=== PATIENT | female | born 1990 | race Caucasian/White ===

== ENCOUNTER 2017-05-06 14:36 | Emergency (ER) | payer BC, SELFPAY ==
[2017-05-06 16:17] VITALS: BP 114/69; PULSE 76; RESP 16; TEMP 36.9; O2SAT 100; BMI 24.7
--- NOTE | 2017-05-06 16:44 | HMH.EDUTC ---
[facility] [place] Clinical Impression: Sinusitis Qualifiers: Sinusitis location: maxillary Chronicity: unspecified Qualified Code(s): J32.0 - Chronic maxillary sinusitis Disposition: Home, Self-Care Condition on Discharge: Good Instructions: Sinusitis, Sinus Headache, DI for Sinusitis Additional Instructions: Start antibiotic. Sinus infections may take 2-3 days to notice much improvement so be sure to use conservative measures as discussed for symptoms Ok to continue Sudafed Flonase 2 spray in each nostril daily to help with nasal congestion, sinus an ear pressure/inflammation Lots of Fluids Sleep elevated Humidifer/vaporizer Augmentin can cause GI effects. Probiotics may help to prevent these symptoms Prescriptions: Amoxicillin/Potassium Clav [Augmentin 875-125 Tablet] 1 tab PO Q12H #14 tab Referrals: Shona Luna [Primary Care Provider] - Time of Disposition: 16:52 (Called with pharmacy and discussed medication due to patient being States that Augmentin is pregnacy B state that it would be safe to use for treatement for sinusitis per Sameer at Pharmacy) Medical Decision Making Vital Signs: 05/06/17 16:17 Temperature 98.5 F Temperature Source Temporal Artery Scan Pulse Rate [Right] 76 Respiratory Rate 16 Blood Pressure [Right Arm] 114/69 Blood Pressure Mean [Right Arm] 84 Blood Pressure Source [Right Arm] Automatic Cuff Blood Pressure Position [Right Arm] Sitting 02 Sat by Pulse Oximetry 100 Oxygen Delivery Method Room Air - Liu Inquiry Pt receiving controlled substance: No Liu was queried for this patient: No [facility] [place] HPI - General Stated complaint: sinus pressure Mode of Arrival: Ambulatory Source of Information: Patient Limitations: No Limitations Description of Symptoms (Recalled from Triage Doc. by RN): CONGESTION, ERAS HURT, HEADACHE X3 DAYS, 6 WKS IUP HEENT Symptoms (Recalled from RN notes): Yes Resp Symptoms (Recalled from RN notes): No Skin Symptoms (Recalled from RN notes): No MS Symptoms (Recalled from RN notes): No Functional Status (Recalled from RN notes): N - History of Present Illness Provider Complaint: Patient state that she is and states that she has a history of sinusitis State that she is having sinus pain and pressure and not feeling well States that she feels like even her teeth is huring - Related Data Previous Rx's Medication Instructions Recorded Amoxicillin/Potassium Clav 1 tab PO Q12H #14 tab 05/06/17 [Augmentin 875-125 Tablet] Allergies Allergy/AdvReac Type Severity Reaction Status Date / Time No Known Allergies Allergy Verified 05/06/17 16:23 - Worker's Comp Is this a Worker's Comp case?: No [facility] History - *Social History Smoking Status: Current every day smoker Tobacco Type: cigarettes Alcohol Intake: never - Psychiatric History Expresses thoughts of harming self/others: None Suicide Plan Description: No Plan - ENT Reports sinus pain, Reports sinus pressure Physical Exam - General General appearance: alert, in no apparent distress - Expanded ENT Exam Nose exam: Present: sinus tenderness Nasal speculum exam: Bilateral: purulent discharge - Respiratory Respiratory exam: Present: normal lung sounds bilaterally. Absent: respiratory distress - Cardiovascular Cardiovascular exam: Present: regular rate, normal rhythm. Absent: JVD - Neurological Exam Neurological exam: Present: alert, oriented X3
== END 2017-05-06 17:00 | disposition home or self-care (01) ==
PROVIDERS: Emergency Provider Nurse Practitioner; PCP Family Medicine
DX: J32.0 Chronic maxillary sinusitis (principal); Z34.90 Encounter for supervision of normal pregnancy, unspecified, unspecified trimester
CPT/HCPCS: 99201

== ENCOUNTER 2021-11-26 09:50 | Emergency (ER) | payer BC, SELFPAY ==
--- NOTE | 2021-11-26 10:10 | HMH.EDUTC ---
[facility] – [place] Disposition Clinical Impression: Abdominal pain Qualifiers: Abdominal location: unspecified location Qualified Code(s): R10.9 - Unspecified abdominal pain Disposition: Still a Patient Condition on Discharge: Fair Referrals: Edu Almazan [Primary Care Provider] - Time of Disposition: 10:41 Medical Decision Making - Medical Records Medical records reviewed: No: I reviewed the patient's medical records. - Liu Inquiry Pt receiving controlled substance: No Vital Signs: 11/26/21 10:12 Temperature 98.8 F Temperature Source Oral Pulse Rate [Left] 89 Respiratory Rate 17 Blood Pressure [Right Arm] 127/74 Blood Pressure Mean [Right Arm] 91 02 Sat by Pulse Oximetry 96 - Lab Data Lab Results 11/26/21 10:06: Strep Scn Rapid Clinic Negative Orders (Tests/Meds): ORDERS Category Date Time Status Covid-19 Nasal PCR ([facility] [place]) Routine Lab 11/26/21 10:04 Received Strep Screen Confirmation Stat Micro 11/26/21 10:06 Received [facility] [place] HPI - General Stated complaint: stomach pains, vomiting, diarrhea Time Seen by Provider: 11/26/21 10:10 - History of Present Illness Provider Complaint: She c/o ruq and epigastric abdominal pain for the past 2 days. She has been vomiting yellowish bile. She has had a diarrhea also. - Related Data Home Medications Medication Instructions Recorded Confirmed Pantoprazole Sodium [Protonix 40mg 60 mg PO DAILY 03/13/19 03/13/19 tablet] Previous Rx's Medication Instructions Recorded Azithromycin [Zithromax 250mg 250 mg PO DIRECTED #6 tab 03/13/19 tab] Allergies Allergy/AdvReac Type Severity Reaction Status Date / Time hydromorphone [From Dilaudid] Allergy Verified 11/26/21 10:16 [facility] [place] History - Hepatitis A Screen Attestation statement:: This patient has been screened for Hepatitis A risk factors. I have reviewed the patient's past medical history: Yes Medical History: Denies:: Cancer, Diabetes Mellitus Type 1, Diabetes Mellitus Type 2, MRSA Laterality Cases: Left: Arthroscopy Shoulder Amputation: No - Social History Smoking Status: Current every day smoker Tobacco Type: cigarettes # Packs/Day (cigarettes): 1 Alcohol Intake: never Occupational Status: other ROS Obtained: Yes All systems reviewed & no additional complaints - Constitutional Constitutional: Reports as per HPI - Eyes Eyes: Denies eye discharge - ENT Ears, Nose, Mouth, and Throat: Denies sore throat - Cardiovascular Cardiovascular: Denies chest pain - Respiratory Respiratory: Denies chest congestion, Denies cough - Gastrointestinal Gastrointestingal: Reports: abdominal pain, cramping, diarrhea, nausea, vomiting - Genitourinary Female Genitourinary: Denies dysuria, Denies urinary frequency, Denies urinary incontinence, Denies urinary hesitancy, Denies urinary urgency - Musculoskeletal Musculoskeletal: Denies joint pain - Integumentary/Breasts Skin/Breast: Denies rash Physical Exam - General General appearance: alert, in no apparent distress - Head Head exam: atraumatic, normocephalic, normal inspection - Eye Eye exam: Present: normal appearance, PERRL, EOMI - ENT ENT exam: Present: normal exam, normal oropharynx, mucous membranes moist, TM's normal bilaterally, normal external ear exam - Neck Neck exam: Present: normal inspection, full ROM, trachea midline. Absent: meningismus, lymphadenopathy - Chest Chest inspection: Present: normal inspection, symmetric chest wall rise. Absent: tenderness - Respiratory Respiratory exam: Present: normal lung sounds bilaterally. Absent: respiratory distress - Cardiovascular Cardiovascular exam: Present: regular rate, normal rhythm. Absent: JVD - Abdominal Exam Abdominal exam: Present: soft, tenderness, guarding, rigidity, hyperactive bowel sounds. Absent: distention, rebound Abdominal tenderness: Present: RUQ, epigastrium, moderate - Extremities Exam Extremities
[2021-11-26 10:12] VITALS: BP 127/74; PULSE 89; RESP 17; TEMP 37.1; O2SAT 96; BMI 23.3
[2021-11-26 10:23] LABS: UTC Strep Screen (Rapid) Negative (Negative)
[2021-11-26 10:41] VITALS: BP 119/77; PULSE 77; RESP 18; TEMP 37.2; O2SAT 99; BMI 23.3
--- NOTE | 2021-11-26 10:41 | PC.NURSE ---
ED MD AT BEDSIDE TO EVALUATE PT
--- NOTE | 2021-11-26 10:42 | PC.NURSE ---
1040 PT AMBULATORY FROM [facility] AT THIS TIME FOR FURTHER EVALUATION
--- NOTE | 2021-11-26 10:46 | HMH.EDABDPAI ---
ED Disposition Clinical Impression: Abdominal pain Qualifiers: Abdominal location: epigastric Qualified Code(s): R10.13 - Epigastric pain Nausea & vomiting Qualifiers: Vomiting type: unspecified Qualified Code(s): R11.2 - Nausea with vomiting, unspecified Diarrhea Qualifiers: Diarrhea type: unspecified type Qualified Code(s): R19.7 - Diarrhea, unspecified Disposition: Home, Self-Care Condition on Discharge: Good Instructions: DI for Nausea -- Adult, Diarrhea, DI for Abdominal Pain-Adult Additional Instructions: follow up with GI and PCP, return here for worse Prescriptions: Ondansetron [Zofran 4mg ODT] 4 mg PO DAILYP PRN #12 tab PRN Reason: Nausea And Vomiting Transmission Status: Pending to [id number] Referrals: Edu Almazan [Primary Care Provider] - - Critical Care Critical Care Time: No Attestation: On 11/26/21, the high probability of a clinically significant, sudden or life threatening deterioration of the following system(s) required my full and direct attention, intervention and personal management. The time I documented below is in addition to time spent performing reported procedures but includes the following listed in this critical care notation. Medical Decision Making - Medical Records Medical records reviewed: Yes: I reviewed the patient's medical records. - Liu Inquiry Pt receiving controlled substance: No Vital Signs: 11/26/21 10:12 11/26/21 11:00 Temperature 98.8 F Temperature Source Oral Pulse Rate 78 Pulse Rate [Left] 89 Respiratory Rate 17 Blood Pressure 111/69 Blood Pressure [Right Arm] 127/74 Blood Pressure Mean 89 Blood Pressure Mean [Right Arm] 91 02 Sat by Pulse Oximetry 96 99 - Lab Data Lab Results 11/26/21 10:06: Strep Scn Rapid Clinic Negative 11/26/21 11:05: WBC 7.2, RBC 4.80, Hgb 15.5, Hct 45.4, MCV 94.5, MCH 32.2 H, MCHC 34.1, RDW 12.2, Plt Count 258, MPV 7.5, Neut % (Auto) 59.4, Lymph % (Auto) 29.0, Chambers % (Auto) 6.9, Eos % (Auto) 3.9, Baso % (Auto) 0.8, Neut # (Auto) 4.3, Lymph # (Auto) 2.1, Chambers # (Auto) 0.5, Eos # (Auto) 0.3, Baso # (Auto) 0.1 11/26/21 11:05: Sodium 142, Potassium 4.1, Chloride 107, Carbon Dioxide 27, Anion Gap 12.1, BUN 4 L, Creatinine 0.50 L, Estimated Creat Clear 165, Estimated GFR 145, Est GFR ( Amer) 175, Glucose 103 H, Calcium 10.0, Total Bilirubin 0.4, AST 45 H, ALT 44, Alkaline Phosphatase 105, Total Protein 7.4, Albumin 4.8, Globulin 2.6, Albumin/Globulin Ratio 1.8, Lipase 113 11/26/21 11:05: Serum HCG, Qual Negative Result diagrams: 11/26/21 11:05 11/26/21 11:05 Orders (Tests/Meds): ED MEDICATIONS Generic Name Dose Route Start Last Admin Trade Name Freq PRN Reason Stop Dose Admin Sodium Chloride 8 ml 11/26/21 10:45 Sodium Chloride 0.9% 10ml Vial IV 12/26/21 10:44 NEEDED PRN dilute pepcid Sodium Chloride 10 ml 11/26/21 11:07 Sodium Chloride 0.9% 10ml Flush Syringe IV 12/26/21 11:06 NEEDED PRN Maintain IV Site Discontinued Medications Generic Name Dose Route Start Last Admin Trade Name Freq PRN Reason Stop Dose Admin Belladonna Alkaloids 60 ml 11/26/21 10:44 11/26/21 11:11 Gi Cocktail 60ml Udc PO 11/26/21 10:45 60 ml ONCE ONE Administration Famotidine 20 mg 11/26/21 10:45 11/26/21 11:12 Famotidine 20mg/2ml Vial IV 11/26/21 10:46 20 mg ONCE ONE Administration Metoclopramide HCl 10 mg 11/26/21 10:44 11/26/21 11:11 Metoclopramide Hcl 10mg/2ml Vial IVP 11/26/21 10:45 10 mg ONCE ONE Administration Ondansetron HCl 8 mg 11/26/21 10:44 11/26/21 11:11 Ondansetron 4mg/2ml Vial IV 11/26/21 10:45 8 mg ONCE ONE Administration ORDERS Category Date Time Status Covid-19 Nasal PCR ([facility]) Routine Lab 11/26/21 10:04 Received Strep Screen Confirmation Stat Micro 11/26/21 10:06 Received - Reevaluation(s) Time: 11:37 (reeval, vss, appears well, abd soft, ok with plan to rx for n/v/d and
[2021-11-26 11:00] VITALS: BP 111/69; PULSE 78; O2SAT 99
--- NOTE | 2021-11-26 11:08 | PC.NURSE ---
1105 UPDATED PT ON POC, QUESTIONS ENCOURAGED AND ANSWERED. PT V/U AND AGREES TO POC
[2021-11-26 11:19] LABS: Basophils # 0.1 K/mm3 (0-0.2); Basophils % 0.8 % (0.1-2.0); Eosinophils # 0.3 K/mm3 (0.0-0.4); Eosinophils % 3.9 % (0.1-12.0); Hematocrit 45.4 % (37.0-47.0); Hemoglobin 15.5 g/dL (12.2-16.2); Lymphocytes # 2.1 K/mm3 (0.7-4.5); Mean Corpuscular HGB Conc 34.1 g/dL (31.8-35.4); Mean Corpuscular Hemoglobin 32.2 pg (27.0-31.2); Mean Corpuscular Volume 94.5 fl (81-99); Mean Platelet Volume 7.5 fl (7.4-10.4); Monocytes # 0.5 K/mm3 (0.1-1.0); Monocytes % 6.9 % (1.7-9.3); Neutrophils # 4.3 K/mm3 (1.8-7.8); Neutrophils % 59.4 % (37.0-80.0); Platelet Count 258 K/mm3 (142-424); Red Cell Distribution Width 12.2 % (11.5-17.5); White Blood Count 7.2 K/mm3 (4.8-10.8)
[2021-11-26 11:20] LABS: Chloride 107 mmol/L (98-107); Sodium 142 mmol/L (136-145)
--- NOTE | 2021-11-26 11:21 | PC.NURSE ---
MEDICATED AT THIS TIME PER EMAR. NO NEEDS VOICED
[2021-11-26 11:22] LABS: Potassium 4.1 mmoL/L (3.5-5.1)
[2021-11-26 11:23] LABS: Alanine Aminotransferase 44 U/L (12-78); Alkaline Phosphatase 105 U/L (38-126); Anion Gap 12.1 mEq/L (5-15); Aspartate Amino Transferase 45 U/L (14-36); Bilirubin,Total 0.4 mg/dl (0.2-1.3); Blood Urea Nitrogen 4 mg/dl (7-17); Carbon Dioxide 27 mmol/L (22.0-30.0); Creatinine Clearance Estimated 165 mL/min (50-200); Estimated Glomerular Filt Rate 145 ml/min (>60); GFR (African American) 175 ML/MIN (>60); Lipase 113 U/L (23-300)
[2021-11-26 11:24] LABS: Glucose 103 mg/dl (74-100)
[2021-11-26 11:25] LABS: Albumin Level 4.8 g/dl (3.5-5.0); Albumin/Globulin Ratio 1.8 (1.1-1.8); Globulin 2.6 g/dL (1.3-3.2); Total Protein,Serum 7.4 g/dl (6.3-8.2)
[2021-11-26 11:33] LABS: HCG Qualitative, Serum Negative (Negative)
--- NOTE | 2021-11-26 11:34 | PC.NURSE ---
ED MD AT BEDSIDE FOR REEVALUATION
--- NOTE | 2021-11-26 11:40 | PC.NURSE ---
rounded on patient, patient stated that she had talked to the doctor and she was getting ready to be released, stated she had no needs at this time
[2021-11-26 11:50] VITALS: BP 117/60; PULSE 78; RESP 18; TEMP 37.1; O2SAT 99
== END 2021-11-26 11:54 | disposition home or self-care (01) ==
LOC: UTC 10:41 → ER 10:43
PROVIDERS: Emergency Medicine; Emergency Provider Nurse Practitioner Family; PCP Internal Medicine
DX: R10.13 Epigastric pain (principal); R11.2 Nausea with vomiting, unspecified; R19.7 Diarrhea, unspecified; R51.9 Headache, unspecified; K21.9 Gastro-esophageal reflux disease without esophagitis; F17.210 Nicotine dependence, cigarettes, uncomplicated; Z20.822 Contact with and (suspected) exposure to COVID-19; Z88.5 Allergy status to narcotic agent; Z88.6 Allergy status to analgesic agent
CPT/HCPCS: 80053; 83690; 84703; 85025; 87880; 96374; 96375; 99285; C9803; J2405; U0003; U0005

== ENCOUNTER → 2021-11-28 16:11 | Outpatient (CLI) | payer BC, SELFPAY ==
--- NOTE | 2021-11-28 16:21 | CT_ITS ---
PROCEDURE INFORMATION: Exam: CT Abdomen And Pelvis With Contrast Exam date and time: 11/28/2021 5:56 PM Age: 31 years old Clinical indication: Abdominal pain; Localized; Right lower quadrant (rlq); Additional info: Abdominal pain; Right lower quadrant TECHNIQUE: Imaging protocol: Computed tomography of the abdomen and pelvis with contrast. Radiation optimization: All CT scans at this facility use at least one of these dose optimization techniques: automated exposure control; mA and/or kV adjustment per patient size (includes targeted exams where dose is matched to clinical indication); or iterative reconstruction. Contrast material: ISOVUE; Contrast volume: 75 ml; Contrast route: IV; Other contrast: Oral; COMPARISON: No relevant prior studies available. FINDINGS: Lungs: Mild atelectasis in the lung bases. Heart: Heart size normal. Mediastinal space: The visualized distal esophagus is largely contracted without gross abnormality. Liver: Normal contour. No mass lesions. No intrahepatic biliary ductal dilatation. Gallbladder and bile ducts: Question faint isoechoic layering material in the gallbladder lumen suggesting possible sludge or noncalcified stones. No gallbladder wall thickening or adjacent stranding to suggest cholecystitis. Nondilated bile ducts. Pancreas: Normal. No inflammatory changes or ductal dilation. Spleen: Normal. No splenomegaly. Adrenal glands: Normal. No adrenal mass. Kidneys and ureters: No acute abnormalities. No hydronephrosis or hydroureter. No urinary tract stones are identified. There is a low-density circumscribed right renal cortical lesion suggesting renal cyst for which no further imaging evaluation is required. Stomach and bowel: The stomach is unremarkable. The small bowel is nondilated with no gross abnormality. No acute colonic abnormalities. The distal colon is largely contracted. Appendix: The appendix is normal in caliber and demonstrates no evidence of appendicitis. Intraperitoneal space: No free fluid or air. Vasculature: No acute process. No abdominal aortic aneurysm. Lymph nodes: No adenopathy. Urinary bladder: Unremarkable as visualized. Reproductive: The uterus and left ovary are unremarkable. There are 2 fairly simple appearing cysts/follicles in the right ovary measuring 2.4 cm and 2.1 cm. The more inferior has questionable slight wall thickening and contour irregularity which may represent ruptured follicle. This is within physiologic range but could produce symptoms. Bones/joints: No acute osseous abnormalities. Soft tissues: Very small fatty umbilical hernia . No evidence of associated bowel herniation or strangulation. IMPRESSION: 1. There are 2 simple appearing cysts/follicles in the right ovary measuring 2.4 and 2.1 cm. One of these has slightly irregular contour and slight wall thickening possibly indicating ruptured/involuting follicle. This is within physiologic range but may produce symptoms. No gross CT features of torsion. 2. Normal appendix. No urolithiasis or hydronephrosis. No evidence of bowel obstruction, perforation, or abscess. 3. Additional nonemergent findings detailed above. COMMENTS: Consistent with the [employer]'s Incidental Findings Committee white paper (J Am Janeen Radiol 2018): Any incidental renal lesion less than 1 cm or classified as too small to characterize, or any incidental cystic renal lesion characterized as simple-appearing, is likely benign. No follow-up imaging is recommended for these lesions per consensus recommendations based on imaging criteria.
== END ==
PROVIDERS: PCP Physician Assistant; Visit Provider Physician Assistant
DX: R10.31 Right lower quadrant pain (principal)
CPT/HCPCS: 74177; Q9967

== ENCOUNTER → 2021-11-29 09:31 | Outpatient (CLI) | payer BC, SELFPAY ==
[2021-11-29 09:43] LABS: Adenovirus F 40/41, stool Not Detected (NotDetected); Astrovirus Not Detected (NotDetected); Campylobacter Not Detected (NotDetected); Clostridium Difficile A/B, PCR Not Detected (NotDetected); Cyclospora Cayetanesis Not Detected (NotDetected); Entamoeba histolytica Not Detected (NotDetected); Enteroaggregative E coli Not Detected (NotDetected); Enterotoxigenic E coli Not Detected (NotDetected); Giardia lamblia Not Detected (NotDetected); Norovirus Not Detected (NotDetected); Plesimonas Shigalloides, PCR Not Detected (NotDetected); Rotavirus A Not Detected (NotDetected); Salmonella, PCR Not Detected (NotDetected); Sapovirus Not Detected (NotDetected); Shiga-like toxin E coli Not Detected (NotDetected); Shigella Enterovasive E coli Not Detected (NotDetected); Vibrio Cholerae Not Detected (NotDetected); Vibrio, PCR Not Detected (NotDetected); Yersinia Entercolitica, PCR Not Detected (NotDetected)
[2021-11-29 14:17] LABS: Cryptosporidium Detected (NotDetected); Enteropathogenic E coli Detected (NotDetected)
== END ==
PROVIDERS: PCP Physician Assistant; Visit Provider Physician Assistant
DX: R19.7 Diarrhea, unspecified (principal); A07.2 Cryptosporidiosis; A04.0 Enteropathogenic Escherichia coli infection
CPT/HCPCS: 87507

== ENCOUNTER 2022-10-23 13:30 | Emergency (ER) | payer BC, SELFPAY ==
--- NOTE | 2022-10-23 13:33 | XR_ITS ---
FINAL REPORT CLINICAL HISTORY: pain lt foot FINDINGS: LEFT FOOT SERIES Three views of the left foot were obtained. There is no acute fracture or dislocation. The joint spaces are preserved. There is no soft tissue abnormality. IMPRESSION: No acute abnormality. Reviewed, Interpreted and Dictated by Andres Bah MD Transcribed by Leonela Sharma Authenticated and [facility]
--- NOTE | 2022-10-23 13:53 | EXP.UTC ---
Discharge Plan Disposition Patient Disposition: Home, Self-Care Condition: Good Prescriptions Prescriptions: New ibuprofen [IBU] 800 mg tablet 800 mg PO Q8HP PRN (Reason: Moderate Pain) Qty: 30 0RF No Action esomeprazole magnesium [Nexium] 20 mg Capsule,Delayed Release(Dr/Ec) 20 mg PO DAILY Referrals Follow up/Referrals: Whitney Allen PA [Primary Care Provider] - See instructions Reanna Varela DPM [Staff Physician] - See instructions Activity Restrictions/Add. Instructions Additional Instructions/Restrictions: Rest the extremity, Elevate the extremity as tolerated while you are resting. Take ibuprofen for pain. I sent in a prescription to your pharmacy. Follow up with Dr. Varela (podiatry) if you continue to have symptoms. I put in a referral but you need to call her office and schedule an appointment. Follow up with your regular doctor. GO TO THE ER FOR ANY WORSENING SYMPTOMS Clinical Impressions Clinical Impression: Acute pain of left foot Stand Alone Forms Stand Alone Forms: Work/School Release Instructions Patient Instructions: DI for Foot Pain Discharge ED Provider: Robe Garcia [facility] General Stated complaint: LT foot pain no known accident Time Seen by Provider: 10/23/22 13:53 History of Present Illness Provider Complaint: She c/o left foot pain for the past 4 days. She denies any known injury. Related Data Home Medications Medication Instructions Recorded Confirmed esomeprazole magnesium 20 mg 20 mg PO DAILY Acid reflux 10/23/22 10/23/22 capsule,delayed release (Nexium) Previous Rx's Medication Instructions Recorded ibuprofen 800 mg tablet (IBU) 800 mg PO Q8HP PRN Moderate Pain 10/23/22 #30 tabs Allergies Allergy/AdvReac Type Severity Reaction Status Date / Time hydromorphone [From Dilaudid] Allergy Verified 03/13/22 15:02 [facility] Disclaimer: The information contained in this section may have been updated after the patient was seen, as this information can be updated by other users. Medical History Encounter for IUD insertion Encounter for Nexplanon removal GERD (gastroesophageal reflux disease) Surgical History Meniscus degeneration Rotator cuff dysfunction Family History Mother Heart attack, Onset Age: 57 Father Hypertension Social History Smoking Status: Current every day smoker tobacco type: cigarettes packs per day: 1 second hand exposure: No alcohol intake: never substance use type: denies use current occupational status: employed and other details: [employer] in the last 8 weeks: None household members: spouse marital status: number of children: 2 ROS Obtained: Yes All systems reviewed & no additional complaints except as documented Constitutional Constitutional: Denies chills and Denies fever(s) Eyes Eyes: Denies eye discharge ENT Ears, Nose, Mouth, and Throat: Denies dizziness, Denies otalgia and Denies sore throat Cardiovascular Cardiovascular: Denies chest pain Respiratory Respiratory: Denies shortness of breath, Denies chest congestion, Denies cough, Denies stridor and Denies wheezing Gastrointestinal Gastrointestingal: Denies nausea or vomiting Musculoskeletal Musculoskeletal: Reports system reviewed and no additional complaints, except as documented and Reports as per HPI Integumentary/Breasts Skin/Breast: Denies rash Neurologic Neurologic: Denies dizziness and Denies paresthesias Allergic/Immunologic Allergic/Immunologic: Denies wheezing Physical Exam General General appearance: alert and in no apparent distress Head Head exam: atraumatic, normocephalic and normal inspection Eye Eye exam: Present normal appearance, PERRL and EOMI ENT ENT exam: Present
[2022-10-23 13:55] VITALS: BP 115/72; PULSE 77; RESP 20; TEMP 36.8; O2SAT 98; BMI 26.6
[2022-10-23 14:48] VITALS: BP 115/72; PULSE 77; RESP 20; TEMP 36.8; O2SAT 98
== END 2022-10-23 14:50 | disposition home or self-care (01) ==
PROVIDERS: Emergency Provider Nurse Practitioner Family; PCP Physician Assistant
DX: M79.672 Pain in left foot (principal); F17.210 Nicotine dependence, cigarettes, uncomplicated; K21.9 Gastro-esophageal reflux disease without esophagitis
CPT/HCPCS: 73630; 99204; 99212; G0463

== ENCOUNTER → 2022-11-11 07:33 | Outpatient (CLI) | payer BC, SELFPAY ==
--- NOTE | 2022-11-11 07:36 | MR_ITS ---
FINAL REPORT CLINICAL HISTORY: LEFT FOOT PLANTAR FASCITIS.HEARD A POP IN FOOT X1 MONTH AGO. COMPARISON: None FINDINGS: Multiplanar MR imaging of the left foot was performed without contrast. The bony structures are intact without evidence of fracture, bone bruise or marrow edema. The flexor and extensor tendons are intact. No ligamentous injury is identified. The musculature is intact. There is thickening of the posterior plantar aponeurosis with adjacent inflammation and/or edema consistent with plantar fasciitis. No soft tissue mass or cyst is identified. IMPRESSION: Findings consistent with plantar fasciitis. Reviewed, Interpreted and Dictated by Arpit Hwang III, MD Transcribed by Rupali Arvizu Authenticated and [facility]
== END ==
PROVIDERS: PCP Physician Assistant; Visit Provider Physician Assistant
DX: M79.672 Pain in left foot (principal); M72.2 Plantar fascial fibromatosis
CPT/HCPCS: 73718

== ENCOUNTER 2023-03-28 10:44 | Emergency (ER) | payer BC, SELFPAY ==
[2023-03-28 10:55] VITALS: BP 141/91; PULSE 93; RESP 19; TEMP 37.2; O2SAT 98; BMI 26.6
--- NOTE | 2023-03-28 11:06 | EXP.UTC ---
Discharge Plan Disposition Patient Disposition: Home, Self-Care Condition: Good Prescriptions Prescriptions: New methylprednisolone [Medrol (Jose)] 4 mg tablets,dose pack See Rx Instructions .Route .COMPLEX 6 Days Qty: 21 0RF Rx Instructions: taper pack; amoxicillin-pot clavulanate 875-125 mg Tablet 1 tab PO Q12H Qty: 20 0RF guaifenesin [Mucinex] 600 mg tablet extended release 12hr 1,200 mg PO BID PRN (Reason: cough) Qty: 20 0RF No Action esomeprazole magnesium [Nexium] 20 mg Capsule,Delayed Release(Dr/Ec) 20 mg PO DAILY ibuprofen [IBU] 800 mg tablet 800 mg PO Q8HP PRN (Reason: Moderate Pain) Qty: 30 0RF Referrals Follow up/Referrals: Whitney Allen PA [Primary Care Provider] - See instructions Activity Restrictions/Add. Instructions Additional Instructions/Restrictions: *Monitor Temp, Over the counter Motrin or Tylenol as directed/as needed Tylenol every 4 hours and Motrin every 6 hours (as long as your family doctor has told you that you can take it) for fever or pain. and straight to ER if unable to lower temp less than 101.0 after medication given *Warm salt water gargles may help to soothe the throat *Throat Lozenges? *Warm fluids like tea with honey may help to soothe the throat? *Sleep elevated *Humidifier/Vaporizer Take medication as prescribed Follow up IMMEDIATELY for new or worsening symptoms or no Noticeable improvement over the next 48-72 hours. 911 for difficulty breathing or swallowing Clinical Impressions Clinical Impression: Bronchitis Sinusitis Qualifiers: Sinusitis location: unspecified location Chronicity: unspecified Qualified Code(s): J32.9 - Chronic sinusitis, unspecified Instructions Patient Instructions: DI for Sinusitis, Sinusitis, Acute Bronchitis Discharge ED Provider: Blank Carver [facility] General Stated complaint: ear pain congestion body aches Mode of Arrival: Ambulatory Source of Information: Patient Limitations: No Limitations Time Seen by Provider: 03/28/23 11:06 Description of Symptoms (Recalled from Triage Doc. by RN): PATIENT C/O BODY ACHES, FEVER, COUGH, CONGESTION, AND EAR/FACE PAIN X 2 WEEKS HEENT Symptoms (Recalled from RN notes): No Resp Symptoms (Recalled from RN notes): Yes Skin Symptoms (Recalled from RN notes): No MS Symptoms (Recalled from RN notes): No Functional Status (Recalled from RN notes): WNL History of Present Illness Provider Complaint: Patient states that she has been sick for about 2 weeks States that she has been having headache, chills, sinus pain and pressure, cough and feeling like it is trying to move into her chest area States that her face feels tender to the touch so today when she was still not feeling any better she came in to get checked Related Data Home Medications Medication Instructions Recorded Confirmed esomeprazole magnesium 20 mg 20 mg PO DAILY Acid reflux 10/23/22 03/28/23 capsule,delayed release (Nexium) Previous Rx's Medication Instructions Recorded ibuprofen 800 mg tablet (IBU) 800 mg PO Q8HP PRN Moderate Pain 10/23/22 #30 tabs amoxicillin 875 mg-potassium 1 tab PO Q12H #20 tabs 03/28/23 clavulanate 125 mg tablet guaifenesin 600 mg tablet, 1,200 mg PO BID PRN cough #20 tabs 03/28/23 extended release 12 hr (Mucinex) methylprednisolone 4 mg tablets in See Rx Instructions .Route 03/28/23 a dose pack (Medrol (Jose)) .COMPLEX 6 days #21 tabs Allergies Allergy/AdvReac Type Severity Reaction Status Date / Time hydromorphone [From Dilaudid] Allergy Verified 03/13/22 15:02 Worker's Comp Is this a Worker's Comp case?: No [facility] Disclaimer: The information contained in this section may have been updated after the patient was seen, as this information can be updated by other users. Medical History Encounter for IUD insertion Encounter for Nexplanon removal GERD (lacey
[2023-03-28 11:10] VITALS: BP 141/91; PULSE 93; RESP 19; TEMP 37.2; O2SAT 98
== END 2023-03-28 11:16 | disposition home or self-care (01) ==
PROVIDERS: Emergency Provider Nurse Practitioner; PCP Physician Assistant
DX: J20.9 Acute bronchitis, unspecified (principal); J01.90 Acute sinusitis, unspecified; R50.9 Fever, unspecified; R05.9 Cough, unspecified; R51.9 Headache, unspecified; H92.03 Otalgia, bilateral; R09.81 Nasal congestion; F17.210 Nicotine dependence, cigarettes, uncomplicated; K21.9 Gastro-esophageal reflux disease without esophagitis
CPT/HCPCS: 99212; 99214; G0463

== ENCOUNTER → 2024-10-26 08:00 | Outpatient (CLI) | payer BC, SELFPAY ==
--- OUTSIDE RECORDS SUMMARY | 2024-09-15 07:50 | XMS_ITS ---
[facility] Address [address] [facility] [address] [place] [id number] Care Team Providers Care Sheriff'S Sergeant Name Role Phone Marcoannita Whitney Unavailable [phone] REASON FOR VISIT B12 shot Encounters Encounter Location Date Provider Diagnosis Ashley [address] [facility] [address] [place] [id number] 09/15/2024 Whitney Allen Vitamin B12 deficien cy E53.8 Assessments Encounter Date Diagnosis (ICD Code) Assessment Notes Treatment Notes Treatment Clinical Notes Section Notes 09/15/2024 Vitamin B12 deficiency (ICD-10 - E53.8) Plan Of Treatment No Information Medications Administered Medication Instructions Date of Administration Dosage Notes B-12 09/15/2024 1 mL Progress Notes * LENA PONDDOB: 2 (34 yo F)Acc No.[id number]:09/15/2024 Patient: LENA JENKINS Provider: DEBORAH Goode :1990 A ge:34 Y S ex:Female Date:09/15/2024 Address:[address] [place] [address] Shara [id number] Subjective: * Chief Complaints: * 1 . B12 shot. * Medical History: Objective: * Vitals: Assessment: * Assessment: 1. V itamin B12 deficiency - E53.8 (Primary) Plan: * Treatment: * Therapeutic Injections: B-12 : 1 mL (Route: Intramuscular) given by NILES Peace on right deltoid (Vitamin B12 deficiency) * Procedure Codes: J 3420 B-12, 31816 ADMINISTRATION OF INJECTION * Billing Information: * Visit Code: * Procedure Codes: J3420 B-12. 45069 ADMINISTRATION OF INJECTION. * Electronic signature of DEBORAH Dawn on 10/26/2024 at 08:05 AM EDT Sign off status: Pending * Provider: DEBORAH Goode Date: 0 09/15/2024 Generated for Vidal ortiz/Arcadio/Earl on: 0 10/26/2024 08:05 AM EDT
--- OUTSIDE RECORDS SUMMARY | 2024-09-29 10:15 | XMS_ITS ---
Author Organization [facility] Address [facility] [address] [id number] Care Team Providers Care Program Evaluation Consultant Name Role Phone Alejandro Whitney Unavailable [phone] Allergies No Known Allergies Reason For Referral Diagnosis 1 Abnormal thyroid blo od test (R79.89) [facility] Referring Provider First Name Whitney Referring Provider Last Name Alejandro Referring Provider Speciality Physician Ironing Pleater Referred Provider Specialty Endocrinolog y General Notes Whitney Allen 02:36:58 PM >Pt needs a referral to Dr. Shawna Youngblood at [facility], please send all labs, Bouchra Feliz 09/29/2024 2:48:07 PM > faxed to Dr. Youngblood's office Referral Priority Routine REASON FOR VISIT f/u endo Medications Medication SIG (Take, Route, Frequency, Duration) Notes Start Date End Date Status Cefdinir 300 MG 1 cap(s) Orally Two times a day for 7 days 08/17/2024 Not-Taking NexIUM 40 MG 1 cap(s) orally once a day for 30 day(s) Active DULoxetine HCl 60 MG 1 capsule Orally On ce a day for 90 days Active Social History Tobacco Use: Social History Observation Description Date Smoking Status WARNING: Information temporarily unavailable CURRENT TOBACCO USE: Question Answer Notes Are you a: 1/2 pack per day Problems Problem Type SNOMED Code ICD Code Onset Dates Problem Status W/U Status Risk Notes Problem 857782638 Thyroid nodule (E04.1) Active confirmed Problem [id number] 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 Vital Signs Weight 151 lbs 09/29/2024 Blood pressure systolic 120 mm Hg 09/30/19 25 Blood pressure diastolic 76 mm Hg 025 Heart Rate 100 /min 09/29/2024 Height 65 in 09/29/2024 BMI 25.12 kg/m2 09/29/2024 Encounters Encounter Location Date Provider Diagnosis [facility] [address] [place], [place] [phone] 09/29/2024 Whitney Allen Abnormal thyroid blo od [...] 25.0-25.9,adult (ICD-10 - Z68.25) Plan Of Treatment Pending Test Test Name Order Date sleep study 09/29/2024 Referrals Referral Date Details 09/29/2024 09/29/2024 Next Appt Details Follow Up: via phone to repo rt test results, Reason: Progress Notes * LENA PONDDOB: 2 (34 yo F)Acc No.[id number]:09/29/2024 Progress Notes Patient: LENA JENKINS Provider: DEBORAH Goode :1990 A ge:34 Y S ex:Female Date:09/29/2024 Address:[address] [place] [address] Shara [id number] Subjective: * Chief Complaints: * 1 . F/u endo. * HPI: H PI: 34 year old female presents with c/o Here for follow up on:?Pt is here today for a f/u from seeing the skill labor, she was told she had subclinical hyperthyroidism [...] Temp: 98.3, BP: 120/76, HR: 100, Nurse: mmh, Ht: 65, BMI:25.12. * Examination: G eneral Examination: General Appearance: N AD. HEENT: u nremarkable. Oral cavity: n o lesions, mucosa moist and WNL, no erythema. Neck: s upple, no lymphadenopathy. Chest: n ormal shape and expansion. Heart: R SR. Lungs: c lear to auscultation. Abdomen: b owel sounds present , soft and nontender. Neurologic Exam: I ntact, gait normal. Skin: n ormal, no rash. Peripheral pulses: n ormal (2+) bilaterally. Extremities: n o leg edema. Assessment: * Assessment: 1. A bnormal thyroid blood test - R79.89 2 . T hyroid nodule - E04.1 ? 3 . D aytime hypersomnia - G47.10 4 . S noring - R06.83 5 . B [place] 25.0-25.9,adult - Z68.25 Plan: * Treatment: 2. D aytime hypersomnia I maging: sleep study * Procedure Codes: G 8950 PREHTN/HTN BP DOC INDCD F/U DOC, G8752 MOST RECENT SYSTOLIC BP < 140MM HG, G8754 MOST RECENT DIASTOLIC BP < 90MM HG, G8420 BMI<30 AND >=22 CALC & DOCU * Follow Up: v ia phone to report test results * Billing Information: * Visit Code: 95443 Office Visit, Est Pt., Level 4. * [...] DEBORAH Goode Date: 0 09/29/2024 Generated for Jayi ng/Faabdirizakg/eTransmitting on: 0 10/26/2024 08:05 AM EDT History and Physical Notes * HPI (History of Present Illness) Category Sub-Category Detail Notes Category Not es HPI Here for follow up on: Pt is her e today for a f/u from seeing the skill labor, she was told she had subclinical hyperthyroidism [...]
--- OUTSIDE RECORDS SUMMARY | 2024-10-20 07:30 | XMS_ITS ---
Author Organization [facility] Address 12[address] [facility] [address] [place] [id number] Care Team Providers Care Pastry Artist Name Role Phone Alejandro Whitney Unavailable [phone] REASON FOR VISIT B12 injection Encounters Encounter Location Date [place] [facility] [address] [place] [phone] 10/20/2024 Whitney Allen Vitamin B 12 deficie ncy E53.8 Assessments Encounter Date Diagnosis (ICD Code) Assessment Notes Treatment Notes Treatment Clinical Notes Section Notes 10/20/2024 Vitamin B 12 deficiency (ICD-10 - E53.8) i Plan Of Treatment No Information Medications Administered Medication Instructions Date of Administration Dosage Notes B-12 10/20/2024 1 mL Progress Notes * DEJAHLENADOB: 2 (34 yo F)Acc No.[id number]:10/20/2024 Patient: LENA JENKINS Provider: DEBORAH Goode :1990 A ge:34 Y S ex:Female Date:10/20/2024 Address:[address] [place] [address] [facility] Subjective: * Chief Complaints: * 1 . B12 injection. * Medical History: Objective: * Vitals: Assessment: * Assessment: 1. V itamin B 12 deficiency - E53.8 (Primary) i Plan: * Treatment: * Therapeutic Injections: B-12 : 1 mL (Route: Intramuscular) given by Bina S[place] on left deltoid (Vitamin B 12 deficiency) * Procedure Codes: J 3420 B-12, 40673 ADMINISTRATION OF INJECTION * Billing Information: * Visit Code: * Procedure Codes: J3420 B-12. 81775 ADMINISTRATION OF INJECTION. * Electronic signature of DEBORAH Dawn on 10/26/2024 at 08:04 AM EDT Sign off status: Pending * Provider: DEBORAH Goode Date: 10/20/2024 Generated for Vidal ortiz/Arcadio/Josefaitting on: 10/26/2024 08:04 AM EDT
--- OUTSIDE RECORDS SUMMARY | 2024-10-26 08:05 | XMS_ITS | Clinical Summary ---
Author Organization [facility] Address [address] [place] [address] Phone [email or web address] Care Team Providers Care Horologist Name Role Phone Provider, No Primary Care Provider Unavailabl e Allergies Active Allergy Reactions Criticality Noted Date Comments Hydromorphone 12/26/2019 Medications cyanocobalamin (VITAMIN B-12) 1000 MCG/ML injection INJECT 1 ML ONCE EVERY MONTH 09/19/2019 Active esomeprazole (NexIUM) [address] capsule Take 40 mg by mouth 1 (one) time each day before breakfast. Do not open capsule. Active Active Problems No known active problems Social History Tobacco Use Types Packs/Day Years Used Date Smoking Tobacco: Every Day Cigarettes Smokeless Tobacco: Never Tobacco Cessation:Ready to Q uit: Not Asked; Counseling Given: Not Answered Intimate Partner Violence Answer Date R ecorded Insults You Not on file 08/14/2020 Threatens You Not on file 08/14/2020 Screams at You Not on file 08/14/2020 Physically Hurt Not on file 08/14/2020 Intimate Partner Violence Score Not on file 08/14/2020 Stress Answer Date Recorded Stress in your Life Not on file 03/07/2024 Dealing with Stress 3 03/07/2024 Comments Unknown Sex and Gender Information Value Date Recorded Sex Assigned at Not on file Legal Sex Female 8:06 AM CDT Gender Identity Not on file Sexual Orientation Not on file Last Filed Vital Signs Vital Sign Reading Time Taken Comments Blood Pressure 122/66 06/06/2024 12:36 PM EST Pulse 64 06/06/2024 12:36 PM EST Temperature 35.6 C (96.1 F) 06/06/2024 12:36 PM EST Respiratory Rate 14 06/06/2024 12:36 PM EST Oxygen Saturation 99% 06/06/2024 12:36 PM EST Inhaled Oxygen Concentration - - Weight 68.9 kg (152 lb) 06/06/2024 12:36 PM EST Height 165.1 cm (5' 5 ) 06/06/2024 12:36 PM EST Body Mass Index 25.29 06/06/2024 12:36 PM EST Plan of Treatment Health Maintenance Due Date Last Done Comments Dental Cleaning/Exam 1990 HIV Screening 1990 Hepatitis C Screening 1990 Cervical Cancer Screening 2007 Hep B Infection Screening - Triple Screen 07/16/2009 Hepatitis B Immunization (1 of 3 - 19+ 3-dose series) 07/16/2010 Pneumococcal: Ped (0 to 5 Yrs) and At-Risk Member (6 to 64 Yrs) (1 of 2 - PCV) 07/16/2010 Annual Preventive Exam 11/29/2022 2, 01/18/2021 Covid-19 Immunization (2 - 2023- season) 2024 08/10/2020 Influenza Immunization (Season Ended) 2025 Tetanus Diphtheria and Pertussis Immunization (2 - Td or Tdap) 10/03/2027 10/02/2017 HIB Immunization Aged Out No longer e ligible based on patient's age to complete this topic HPV Immunization Aged Out No longer e ligible based on patient's age to complete this topic Hepatitis A Immunization Aged Out No longer eligible based on patient's age to complete this topic Polio Immunization Aged Out No longer eligible based on patient's age to complete this topic Varicella Immunization Aged Out No lo nger eligible based on patient's age to complete this topic Insurance OPT OUT NO COPAY NB Care Teams Horologist Relationship Specialty Start Date [place] [address] PCP - General Orthopedic Physician Assistant 11/27/22
--- OUTSIDE RECORDS SUMMARY | 2024-10-26 08:05 | XMS_ITS | Patient Health Record ---
Author Organization [facility] Address [address] [facility] [address] [place] [id number] Care Team Providers Care Aircraft Systems Technician Name Role Phone Whitney Allen Unavailable [phone] Allergies No Known Allergies Results Component Value Reference Range Notes P-Thyroid Antibody Panel (TA BS) Reviewed date:08/25/2024 03:15:46 PM Interpretation: Performing Lab: Notes/Report: Test performed by [facility] [place] [address] , [address], [place] [address] Asad Saucedo MD, Sales And Merchandising Representative CLIA: [id number] Thyroid Peroxidase Antibody 10 <9-34 IU/mL An elevated Thyroid Peroxidase Antibody should not be used alone to make the diagnosis of autoimmune thyroid disease. A result of <34 IU/mL does not definitively rule out the possibility of autoimmune thyroid disease. Thyroglobulin Antibody 19.6 <10-115.0 IU/mL The test is performed by the Enrico ECLIA methodology. Values obtained with different assay methods or kits cannot be directly compared. P-Vitamin D 25-Hydroxy Reviewed date:08/18/2024 04:25:19 PM Interpretation:25.4 Performing Lab: Notes/Report: Test performed by [facility] [address] [place], [place] [address] [address] , [address], [place] [address] Asad Saucedo MD, Sales And Merchandising Representative CLIA: [id number] Vitamin D 25-Hydroxy 25.4 30.0-100.0 ng/mL Interpretation of Vitamin D 25 OH: < 20 ng/mL - Deficiency 20 - 29 ng/mL - Insufficiency 30 - 100 ng/mL - Sufficiency > 100 ng/mL - Super-therapeutic- toxicity may occur above this level. Clinical correlation required. P-TSH Reviewed date:08/18/2024 04:25:19 PM Interpretation:0.12 Performing Lab: Notes/Report: Test performed by [facility] [address] , [address], [place] [address] Asad Saucedo MD, Sales And Merchandising Representative CLIA: [id number] TSH 0.12 0.43-5.25 mU/L P-T4 Free (thyroxine) Reviewed date:08/18/2024 04:25:19 PM Interpretation:Normal Performing Lab: Notes/Report: Test performed by [facility] , [address], [place] [address] Asad Saucedo MD, Sales And Merchandising Representative CLIA: [id number] Thyroxine Free (free T4) 1.41 0.86-1.76 ng/dL P-Vitamin B12 Reviewed date:08/18/2024 04:25:18 PM Interpretation:Normal Performing Lab: Notes/Report: Test performed by [facility] [address] , [address], [place] [address] Asad Saucedo MD, Sales And Merchandising Representative CLIA: [id number] Vitamin B12 [phone] pg/mL CBC Venipuncture (in house) Reviewed date:08/17/2024 02:45:41 PM Interpretation: Performing Lab: Notes/Report: wbc 9.5 3.5 - 10 lymph 14.3% 15 - 50 mid 4.0% 2 - 15 gran 81.7% 35 - 80 rbc 4.57 3.5 - 5.5 hgb 14.4 11.5 - 16.5 hct 42.2 35 - 55 mcv 92.1 75 - 100 mch 31.5 25 - 35 mchc 34.2 31 - 38 platlet 249 100 - 400 P-Vitamin D 25-Hydroxy Reviewed date:06/30/2024 04:51:34 PM Interpretation:29.9 Performing Lab: Notes/Report: Test performed by [facility] [address] , [address], [place] [address] Asad Saucedo MD, Sales And Merchandising Representative CLIA: [id number] Vitamin D 25-Hydroxy 29.9 30.0-100.0 ng/mL Interpretation of Vitamin D 25 OH: < 20 ng/mL - Deficiency 20 - 29 ng/mL - Insufficiency 30 - 100 ng/mL - Sufficiency > 100 ng/mL - Super-therapeutic- toxicity may occur above this level. Clinical correlation required. P-TSH Reviewed date:06/30/2024 04:51:34 PM Interpretation:0.21 Performing Lab: Notes/Report: Test performed by [facility] , [address], [place] [address] Asad Saucedo MD, Sales And Merchandising Representative CLIA: [id number] TSH 0.21 0.43-5.25 mU/L P-T4 Free (thyroxine) Reviewed date:06/30/2024 04:51:34 PM Interpretation:Normal Performing Lab: Notes/Report: Test performed by [facility] [address] , [address], [place] [address] Asad Saucedo MD, Sales And Merchandising Representative CLIA: [id number] Thyroxine Free (free T4) 1.63 0.86-1.76 ng/dL C-I-Buxuzibl Protein (CRP) Reviewed date:06/30/2024 04:51:34 PM Interpretation:Normal Performing Lab: Notes/Report: Test performed by [facility] [address] , [address], [place] [address] Asad Saucedo MD, Sales And Merchandising Representative CLIA: [id number] C-Reactive Protein (CRP) 0.04 <0.50 mg/dL P-Vitamin B12 Reviewed date:06/30/2024 04:51:33 PM Interpretation:353 - low normal Performing Lab: Notes/Report: Test performed by [facility] [address] , [address], [place] [address] Asad Saucedo MD, Sales And Merchandising Representative CLIA: [id number] Vitamin B12 491 316-5723 pg/mL Reason For Referral Diagnosis 1 Abnormal thyroid blo od test (R79.89) Referral Organization [facility] Referring Provider First Name Whitney Referring Provider Last Name Alejandro Referring Provider Speciality Physician Hair Or Beauty Salon Assistant Referred Provider Specialty Endocrinolog y General Notes Whitney Allen 02:36:58 PM >Pt needs a referral to Dr. Shawna Youngblood at [facility], please send all labs, Bouchra Feliz 09/29/2024 2:48:07 PM > faxed to Dr. Youngblood's office Referral Priority Routine Medications Medication SIG (Take, Route, Frequency, Duration) Notes Start Date End Date Status Cefdinir 300 MG 1 cap(s) Orally Two times a day for 7 days 08/17/2024 Not-Taking NexIUM 40 MG 1 cap(s) orally once a day for 30 day(s) Active DULoxetine HCl 60 MG 1 capsule Orally On ce a day for 90 days Active Immunizations Vaccine Route Administration Date Status Comme nts COVID 19 Pfizer Unknown 08/10/2020 Administered Social History Tobacco Use: Social History Observation Description Date Smoking Status WARNING: Information temporarily unavailable CURRENT TOBACCO USE: Question Answer Notes Are you a: 1/2 pack per day Problems Problem Type SNOMED Code ICD Code Onset Dates Problem Status W/U Status Risk Notes Problem 18250006 Vitamin D deficiency (E55.9) Active confirmed Problem 47733170 Paresthesia (R20.2) Active confirmed Problem 586382334391095 Elevated C-reactive protein (CRP) (R79.82) Active confirmed Problem 426600459 Thyroid nodule (E04.1) Active confirmed Problem 98890709 Anxiety, generalized (F41.1) Active confirmed Problem 607883001 Leukocytosis, unspecified (D72.829) Active confirmed Problem 51150477348388 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 Vital Signs Heart Rate 100 /min 09/29/2024 Blood pressure diastolic 76 mm Hg 09/29/2024 Height 65 in 09/29/2024 Blood pressure systolic 120 mm Hg 09/29/2024 Weight 151 lbs 09/29/2024 BMI 25.12 kg/m2 09/29/2024 Encounters Encounter Location Date Provider Diagnosis [facility] [address] [place] [id number] 02/25/2024 Whitney Allen Epidermal cyst L72.0 and Local infection of the skin and subcutaneous tissue, unspecified L08.9 [facility] [address] [place] [id number] 06/29/2024 Whitney Allen Anxiety, generalized F41.1 ; Costochondritis M94.0 ; Vitamin B12 deficiency E53.8 ; Vitamin D deficiency E55.9 ; Elevated C-reactive protein (CRP) R79.82 and Abnormal thyroid blood test R79.89 [facility] [address] [place], [place] [id number] 07/14/2024 Whitney Crowdy Vitamin B12 deficien cy E53.8 [facility] [address] [place], [place] [id number] 07/20/2024 Whitney Crowdy Anxiety, generalized F41.1 ; Vitamin B12 deficiency E53.8 and Vitamin D deficiency E55.9 [facility] [address] [place], [place] [id number] 08/10/2024 Whitney Crowdy Vitamin B 12 deficie ncy E53.8 [facility] [address] [place], [place] [id number] 08/17/2024 Whitney Crowdy Anxiety, generalized F41.1 ; Vitamin B12 deficiency E53.8 ; Vitamin D deficiency E55.9 ; Abnormal thyroid blood test R79.89 ; Acute URI J06.9 and BMI 24.0-24.9, adult Z68.24 [facility] [address] [place] [id number] 08/23/2024 Whitney Crowdy Abnormal thyroid blo od test R79.89 [facility] [address] [place], [place] [id number] 09/15/2024 Whitney Crowdy Vitamin B12 deficien cy E53.8 [facility] [address] [place], [place] [id number] 09/29/2024 Whitney Crowdy Abnormal thyroid blo od test R79.89 ; Thyroid nodule E04.1 ; Daytime hypersomnia G47.10 ; Snoring R06.83 and BMI 25.0-25.9,adult Z68.25 [facility] [address] [place], [place] [id number] 10/20/2024 Whitney Crowdy Vitamin B [address] [facility] [address] [place], [place] [id number] 06/30/2024 Whitney Allen [facility] [address] [place] [id number] 08/18/2024 Whitney Allen [facility] [address] [place] [id number] 08/25/2024 Whitney Allen Assessments Encounter Date Diagnosis (ICD Code) Assessment Notes Treatment Notes Treatment Clinical Notes Section Notes 02/25/2024 Local infection of the skin and subcutaneous tissue, unspecified (ICD-10 - L08.9) 02/25/2024 Epidermal cyst (ICD-10 - L72.0) Will apply hot compresses and f/u in a week if not resolved. 06/29/2024 Anxiety, generalized (ICD-10 - F41.1) 06/29/2024 Costochondritis (ICD-10 - M94.0) 07/14/2024 Vitamin B12 deficiency (ICD-10 - E53.8) 07/20/2024 Vitamin B12 deficiency (ICD-10 - E53.8) Will continue B12 shots and recheck levels in 1 month. 07/20/2024 Anxiety, generalized (ICD-10 - F41.1) 08/10/2024 Vitamin B 12 deficiency (ICD-10 - E53.8) 08/17/2024 Vitamin B12 deficiency (ICD-10 - E53.8) Will continue B12 shots. 08/17/2024 Anxiety, generalized (ICD-10 - F41.1) Doing well on current medication. 08/23/2024 Abnormal thyroid blood test (ICD-10 - R79.89) 09/15/2024 Vitamin B12 deficiency (ICD-10 - E53.8) 09/29/2024 Abnormal thyroid blood test (ICD-10 - R79.89) 10/20/2024 Vitamin B 12 deficiency (ICD-10 - E53.8) i 09/29/2024 Thyroid nodule (ICD-10 - E04.1) 08/17/2024 Vitamin D deficiency (ICD-10 - E55.9) 07/20/2024 Vitamin D deficiency (ICD-10 - E55.9) 06/29/2024 Vitamin B12 deficiency (ICD-10 - E53.8) 06/29/2024 Vitamin D deficiency (ICD-10 - E55.9) 08/17/2024 Abnormal thyroid blood test (ICD-10 - R79.89) 09/29/2024 Daytime hypersomnia (ICD-10 - G47.10) 09/29/2024 Snoring (ICD-10 - R06.83) 08/17/2024 Acute URI (ICD-10 - J06.9) 06/29/2024 Elevated C-reactive protein (CRP) (ICD-10 - R79.82) 06/29/2024 Abnormal thyroid blood test (ICD-10 - R79.89) 08/17/2024 BMI 24.0-24.9, adult (ICD-10 - Z68.24) 09/29/2024 BMI 25.0-25.9,adult (ICD-10 - Z68.25) Plan Of Treatment Pending Test Test Name Order Date sleep study 09/29/2024 Insurance Providers Payer Name Payer Address Payer Phone Subscriber Number Group Number Insured Name Patient Relationship to Insured Coverage Start Date Coverage End Date [employer]O [employer] [facility] [address] [place] [address] [id number] LENA POND Self - patient is the insured Medications Administered Medication Instructions Date of Administration Dosage Notes B-12 07/14/2024 1 mL B-12 07/20/2024 1 mL B-12 08/10/2024 1 mL B-12 08/17/2024 1 mL B-12 09/15/2024 1 mL B-12 10/20/2024 1 mL Medical (General) History Surgical History Surgery Date(Month/Year) Septoplasty 2013 Rotator cuff -right 2016 knee scope- meniscus repair 2019
== END ==
LOC: SL 08:00
PROVIDERS: PCP Physician Assistant; Visit Provider Physician Assistant
DX: G47.10 Hypersomnia, unspecified (principal); R06.83 Snoring
CPT/HCPCS: G0399

== ENCOUNTER 2024-12-29 14:54 | Outpatient (CLI) | payer BC, SELFPAY ==
--- OUTSIDE RECORDS SUMMARY | 2024-09-29 10:15 | XMS_ITS ---
Author Organization [facility] Address [address] [facility] [address] [id number] Care Team Providers Care Brownell Operator Name Role Phone MarcoKlaus arizaa Unavailable [phone] Allergies No Known Allergies Results Component Value Reference Range Notes sleep study Reviewed date:11/22/2024 01:50:58 PM Interpretation:no significant TEVIN, snoring present Performing Lab: Notes/Report: no significant TEVIN, snoring present Reason For Referral Diagnosis 1 Abnormal thyroid blo od test (R79.89) [facility] Referring Provider First Name Whitney Referring Provider Last Name Alejandro Referring Provider Speciality Physician Treasury Consultant Referred Provider Specialty Endocrinolog y General Notes Whitney Allen 02:36:58 PM >Pt needs a referral to Dr. Shawna Youngblood at [facility], please send all labs, Bouchra Feliz 09/29/2024 2:48:07 PM > faxed to Dr. Youngblood's office Referral Priority Routine REASON FOR VISIT f/u endo Medications Medication SIG (Take, Route, Frequency, Duration) Notes Start Date End Date Status Cefdinir 300 MG 1 cap(s) Orally Two times a day; Duration: 7 days 08/17/2024 Not-Taking NexIUM 40 MG 1 cap(s) orally once a day; Duration: 30 day(s) Active DULoxetine HCl 60 MG 1 capsule Orally On ce a day; Duration: 90 days Active Social History Tobacco Use: Social History Observation Description Date Smoking Status WARNING: Information temporarily unavailable CURRENT TOBACCO USE: Question Answer Notes Are you a: 1/2 pack per day Problems Problem Type SNOMED Code ICD Code Onset Dates Problem Status W/U Status Risk Notes Problem Thyroid nodule (797545096) Thyroid nodule (E04.1) Active confirmed Problem Daytime hypersomnia (32490291067619) 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 Vital Signs Weight 151 lbs 09/29/2024 Blood pressure systolic 120 mm Hg 09/30/19 25 Blood pressure diastolic 76 mm Hg 025 Heart Rate 100 /min 09/29/2024 Height 65 in 09/29/2024 BMI 25.12 kg/m2 09/29/2024 Encounters Encounter Location Date Provider Diagnosis [facility] [address] [place] [id number] 09/29/2024 Whitney Allen Abnormal thyroid blo od test R79.89 ; Thyroid nodule E04.1 ; Daytime hypersomnia G47.10 ; Snoring R06.83 and BMI 25.0-25.9,adult Z68.25 Assessments Encounter Date Diagnosis (ICD Code) Assessment Notes Treatment Notes Treatment Clinical Notes Section Notes 09/29/2024 Abnormal thyroid blood test (ICD-10 - R79.89) 09/29/2024 Thyroid nodule (ICD-10 - E04.1) 09/29/2024 Daytime hypersomnia (ICD-10 - G47.10) 09/29/2024 Snoring (ICD-10 - R06.83) 09/29/2024 BMI 25.0-25.9,adult (ICD-10 - Z68.25) Plan Of Treatment Referrals Referral Date Details 09/29/2024 09/29/2024 Next Appt Details Follow Up: via phone to repo rt test results, Reason: Progress Notes * LENA PONDDOB: 2 (34 yo F)Acc No.[id number]:09/29/2024 Progress Notes Patient: LENA JENKINS Provider: DEBORAH Goode :1990 A ge:34 Y S ex:Female Date:09/29/2024 Address:[address] [place], [place] [address] Subjective: * Chief Complaints: * 1 . F/u endo. * HPI: H PI: 34 year old female presents with c/o Here for follow up on:?Pt is here today for a f/u from seeing the state federal relations deputy director, she was told she had subclinical hyperthyroidism but that no medication was necessary. She was also told she had nodules and would need a repeat U/S in 1 year. She would like a 2nd opinion.. * ROS: D ERMATOLOGY: no R yasmine. n o H anders. G ASTROENTEROLOGY: no N ausea. n o V omiting. n o D iarrhea.? U ROLOGY: no D ifficulty urinating. n o B lood in urine. * Medical History: M edical History Verified. * Surgical History: S eptoplasty 2012, Rotator cuff -right 2015, knee scope- meniscus repair 2019. * Family History: F ather: alive, diagnosed with Hypertension. M other: , diagnosed with Hypertension, Heart Disease. 1 sister(s) - healthy. 1 son(s) , 1 daughter(s) . . * Social History: C URRENT TOBACCO USE: Yes A re you a: 1/2 pack per day. C affeine: yes, frequency: coffee -1 cup per day. Soda - 1 per day. Alcohol: no. Recreational drug use: no. * Medications: T aking NexIUM 40 MG Capsule Delayed Release 1 cap(s) orally once a day , Taking DULoxetine HCl 60 MG Capsule Delayed Release Particles 1 capsule Orally Once a day , Not-Taking Cefdinir 300 MG Capsule 1 cap(s) Orally Two times a day , Medication List reviewed and reconciled with the patient * Allergies: N .K.D.A. Objective: * Vitals: W t: 151, Temp: 98.3, BP: 120/76, HR: 100, Nurse: mm, Ht: 65, BMI:25.12. * Examination: G eneral Examination: General Appearance: N AD. H EENT: u nremarkable.?Oral cavity: n o lesions, mucosa moist and WNL, no erythema. N mitul: s upple, no lymphadenopathy. C hest: n ormal shape and expansion. H eart: R SR. L ungs: c lear to auscultation. A bdomen: b owel sounds present , soft and nontender. N eurologic Exam: I ntact, gait normal. S kin: n ormal, no rash. P eripheral pulses: n ormal (2+) bilaterally. E xtremities: n o leg edema. Assessment: * Assessment: 1. A bnormal thyroid blood test - R79.89 2 . T hyroid nodule - E04.1 ? 3 . D aytime hypersomnia - G47.10 4 . S noring - R06.83 5 . B AR 25.0-25.9,adult - Z68.25 Plan: * Treatment: 2. D aytime hypersomnia I maging: sleep study (Performed Date - 10/20/2024) n o significant TEVIN, snoring present * Procedure Codes: G 8950 PREHTN/HTN BP DOC INDCD F/U DOC, G8752 MOST RECENT SYSTOLIC BP < 140MM HG, G8754 MOST RECENT DIASTOLIC BP < 90MM HG, G8420 BMI<30 AND >=22 CALC & DOCU * Follow Up: v ia phone to report test results * Images: Billing Information: * Visit Code: 46427 Office Visit, Est Pt., Level 4. * Procedure Codes: G8950 PREHTN/HTN BP DOC INDCD F/U DOC. G8752 MOST RECENT SYSTOLIC BP < 140MM HG. G8754 MOST RECENT DIASTOLIC BP < 90MM HG. G8420 BMI<30 AND >=22 CALC & DOCU. * Electronic signature of DEBORAH Dawn on 12/29/2024 at 02:56 PM EDT Sign off status: Pending * Provider: DEBORAH Goode Date: 0 09/29/2024 Generated for Vidal ng/Faabdirizakg/eTransmitting on: 0 12/29/2024 02:56 PM EDT History and Physical Notes * HPI (History of Present Illness) Category Sub-Category Detail Notes Category Not es HPI Here for follow up on: Pt is her e today for a f/u from seeing the state federal relations deputy director, she was told she had subclinical hyperthyroidism but that no medication was necessary. She was also told she had nodules and would need a repeat U/S in 1 year. She would like a 2nd opinion. Examination Category Sub-Category Detail Notes Category Not es General Examination HEENT: unremarkable Heart: RSR Lungs: clear to auscultatio n Abdomen: bowel sounds present , soft and nontender Extremities: no leg edema General Appearance: NAD Skin: normal, no rash Neurologic Exam: Intact, gait normal Neck: supple, no lymphaden opathy Oral cavity: no lesions, mucosa m oist and WNL, no erythema Peripheral pulses: normal (2+) bilatera lly Chest: normal shape and exp ansion Consultation Request Notes Referral Date Referring Provider Referred Provider Not es 09/29/2024 Whitney Allen ,
--- OUTSIDE RECORDS SUMMARY | 2024-10-20 07:30 | XMS_ITS ---
Author [facility] 12[address] [facility] [address] [place] [phone] Care Team Providers Care Scientific Investigator Name Role Phone Alejandro Whitney Unavailable [phone] REASON FOR VISIT B12 injection Encounters Encounter Location Date Provider Diagnosis Ashley [address] [facility] [address] [place] [phone] 10/20/2024 Whitney Allen Vitamin B 12 deficie ncy E53.8 Assessments Encounter Date Diagnosis (ICD Code) Assessment Notes Treatment Notes Treatment Clinical Notes Section Notes 10/20/2024 Vitamin B 12 deficiency (ICD-10 - E53.8) i Plan Of Treatment No Information Medications Administered Medication Instructions Date of Administration Dosage Notes B-12 10/20/2024 1 mL Progress Notes * LENA PONDDOB: 2 (34 yo F)Acc No.[id number]:10/20/2024 Patient: LENA JENKINS Provider: DEBORAH Goode :1990 A ge:34 Y S ex:Female Date:10/20/2024 Address:[address] [place] [address] [facility] Subjective: * Chief Complaints: * 1 . B12 injection. * Medical History: Objective: * Vitals: Assessment: * Assessment: 1. V itamin B 12 deficiency - E53.8 (Primary) i Plan: * Treatment: * Therapeutic Injections: B-12 : 1 mL (Route: Intramuscular) given by Bina [place] on left deltoid (Vitamin B 12 deficiency) * Procedure Codes: J 3420 B-12, 68322 ADMINISTRATION OF INJECTION * Images: Billing Information: * Visit Code: * Procedure Codes: J3420 B-12. 08503 ADMINISTRATION OF INJECTION. * Electronic signature of DEBORAH Dawn on 12/29/2024 at 02:56 PM EDT Sign off status: Pending * Provider: DEBORAH Goode Date: 0 10/20/2024 Generated for Vidal ortiz/Arcadio/Josefaitting on: 0 12/29/2024 02:56 PM EDT
--- OUTSIDE RECORDS SUMMARY | 2024-11-24 08:40 | XMS_ITS ---
[facility] Address [address] [facility] [address] [place] [phone] Care Team Providers Care Track Leader Name Role Phone Alejandro Whitney Unavailable [phone] REASON FOR VISIT B12 injection only Encounters Encounter Location Date Provider Diagnosis [facility] [address] [facility] [address] [place] [id number] 11/24/2024 Whitney Allen Vitamin B 12 deficie ncy E53.8 Assessments Encounter Date Diagnosis (ICD Code) Assessment Notes Treatment Notes Treatment Clinical Notes Section Notes 11/24/2024 Vitamin B 12 deficiency (ICD-10 - E53.8) Plan Of Treatment No Information Medications Administered Medication Instructions Date of Administration Dosage Notes B-12 11/24/2024 1 mL Progress Notes * DEJAHLENADOB: 2 (34 yo F)Acc No.[id number]:11/24/2024 Patient: LENA JENKINS Provider: DEBORAH Goode :1990 A ge:34 Y S ex:Female Date:11/24/2024 Address:[address] [place] [address] [facility] Subjective: * Chief Complaints: * 1 . B12 injection only. * Medical History: Objective: * Vitals: Assessment: * Assessment: 1. V itamin B 12 deficiency - E53.8 (Primary) Plan: * Treatment: * Therapeutic Injections: B-12 : 1 mL (Route: Intramuscular) given by [place] on right deltoid (Vitamin B 12 deficiency) * Procedure Codes: J 3420 B-12, 95027 ADMINISTRATION OF INJECTION * Images: Billing Information: * Visit Code: * Procedure Codes: J3420 B-12. 36253 ADMINISTRATION OF INJECTION. * Electronic signature of DEBORAH Dawn on 12/29/2024 at 02:56 PM EDT Sign off status: Pending * Provider: DEBORAH Goode Date: 11/24/2024 Generated for Vidal ortiz/Arcadio/Josefaitting on: 12/29/2024 02:56 PM EDT
--- OUTSIDE RECORDS SUMMARY | 2024-11-30 08:00 | XMS_ITS | Encounter Summary ---
Author Organization [facility] Address [address] [place] [address] Care Team Providers Care Manufacturer Agent Name Role Phone Whitney Allen Primary Care Provider [phone] Reason for Visit * Reason Comments Abnormal thyroid blood test Encounter Details Date Type Department Care Team (Late st Contact Info) Description 11/30/2024 8:00 AM EDT Office Visit [facility] [address] [employer] [address] [address] Nisha Petty PA-C [address] [employer] [address] [address] Hyperthyroidism (Primary Dx); Multinodular goiter Social History Tobacco Use Types Packs/Day Years Used Date Smoking Tobacco: Former Cigarettes 0.5 15 Q uit: 03/23/2023 Alcohol Use Standard Drinks/Week Comments Never 0 (1 standard drink = 0.6 oz pur e alcohol) Comments Unknown Sex and Gender Information Value Date Recorded Sex Assigned at Female 11/23/2024 11:18 AM EDT Legal Sex Female 12:49 PM EDT Gender Identity Not on file Sexual Orientation Straight 11/23/2024 11 :18 AM EDT documented as of this encounter Last Filed Vital Signs Vital Sign Reading Time Taken Comments Blood Pressure 118/72 11/30/2024 8:06 AM EDT Pulse 83 11/30/2024 8:06 AM EDT Temperature - - Respiratory Rate - - Oxygen Saturation 97% 11/30/2024 8:06 AM EDT Inhaled Oxygen Concentration - - Weight 69.4 kg (153 lb) 11/30/2024 8:06 AM EDT Height 165.1 cm (5' 5 ) 11/30/2024 8:06 AM EDT Body Mass Index 25.46 11/30/2024 8:06 AM EDT documented in this encounter Progress Notes * Nisha Petty PA-C - 11/30/2024 8:50 AM EDTAssociated Problem(s): Multinodular goiter Obtain results from ultrasound 08/2024 Reassured patient due to multinodular goiter that cancer is less likely, especially if nodule was noted to be spongiform in appearance and less than 1 cm in size Schedule patient for follow-up with physician with expertise in thyroid nodules/ultrasound * Nisha Petty PA-C - 11/30/2024 8:48 AM EDTAssociated Problem(s): Hyperthyroidism Reviewed outside labs and medical records Pituitary thyroid axis discussed in detail, lab results explained to patient Discussed etiology of hyperthyroidism including thyroiditis, Graves' disease, and toxic nodule Check TSH, free T3, free T4 (TSI not ordered, as patient thinks she has already had previously and it was negative) Patient is asymptomatic (without tachycardia or tremor on exam), will not start methimazole at thistime Further plan to follow if lab results remain abnormal including possible thyroid uptake and scan * Nisha Petty PA-C - 11/30/2024 8:00 AM EDT Images from the original note were not included. Office Note Date: 11/30/2024 Patient Name: Nadya Amador : 1990 Chief Complaint Patient presents with Abnormal thyroid blood test History of Present Illness: Nadya Amador is a 34 y.o. female who presents for Abnormal thyroid blood test . Symptoms are: weight loss(20 pounds between February and May), hair loss, slowly regaining weight since that time, heart palpitations, anxiety, heat intolerance, no diarrhea, tremor. Symptoms began in: 7-8 months ago. They are increasing. ( Except for weight loss) Lab work showed overactive function. Thinks that other blacktop spreader ordered TSI and this was negative. Patient also reports she had ultrasound August/2024 with another blacktop spreader and had 5 nodules. She reports they said nodules were spongiform and did not need biopsy. Patient is not been placed on any medication for thyroid function e.g. methimazole, propranolol No biotin supplements Subjective Patient was born where: [place]. Facial radiation exposure: No. High iodine intake: No Family hx of thyroid disease: Yes, describe: cousin with MEN-2, had thyroidectomy. Review of Systems: Review of Systems Constitutional: Negative for fatigue. Cardiovascular: Positive for palpitations. Gastrointestinal: Negative for constipation and diarrhea. Endocrine: Positive for heat intolerance. Excessive hair loss Neurological: Positive for tremors. Psychiatric/Behavioral: The patient is nervous/anxious. The following portions of the patient's history were reviewed and updated as appropriate: allergies, current medications, past family history, past medical history, past social history, past surgicalhistory, and problem list. Objective Visit Vitals BP 118/72 (BP Location: Left arm, Patient Position: Sitting, Cuff Size: Adult) Pulse 83 Ht 165.1 cm (65 ) Wt 69.4 kg (153 lb) SpO2 97% BMI 25.46 kg/m?? Physical Exam: Physical Exam Vitals reviewed. Constitutional: General: She is not in acute distress. Appearance: Normal appearance. She is normal weight. Neck: Thyroid: No thyroid mass, thyromegaly or thyroid tenderness. Cardiovascular: Rate and Rhythm: Normal rate and regular rhythm. Heart sounds: Normal heart sounds. Pulmonary: Effort: Pulmonary effort is normal. Breath sounds: Normal breath sounds. Musculoskeletal: Cervical back: Neck supple. Lymphadenopathy: Cervical: No cervical adenopathy. Skin: General: Skin is warm and dry. Neurological: General: No focal deficit present. Mental Status: She is alert and oriented to person, place, and time. Mental status is at baseline. Psychiatric: Mood and Affect: Mood normal. Behavior: Behavior normal. Thought Content: Thought content normal. Judgment: Judgment normal. No exophthalmos or tremor Labs: Labs reviewed from outside source TSH 06/29/2024 0.21 08/17/2024 0.12 Free T4 on 06/29/2024 1.63 08/17/2024 1.41 Thyroid peroxidase antibody 10 Thyroglobulin antibody 19.6 TSH No results found for: TSHBASE Free T4 No results found for: FREET4 T3 No results found for: L1DYFZU TPO No results found for: THYROIDAB TG AB No results found for: THGAB TG No results found for: THYROGLB CBC w/DIFF No results found for: WBC , RBC , HGB , HCT , MCV , MCH , MCHC , RDW , RDWSD , MPV , PLT , NEUTRORELPCT , LYMPHORELPCT , MONORELPCT , EOSRELPCT , BASORELPCT , AUTOIGPER , NEUTROABS , LYMPHSABS , MONOSABS , EOSABS , BASOSABS , AUTOIGNUM , NRBC Assessment / Plan Assessment & Plan: Diagnoses and all orders for this visit: 1. Hyperthyroidism (Primary) Assessment & Plan: Reviewed outside labs and medical records Pituitary thyroid axis discussed in detail, lab results explained to patient Discussed etiology of hyperthyroidism including thyroiditis, Graves' disease, and toxic nodule Check TSH, free T3, free T4 (TSI not ordered, as patient thinks she has already had previously and it was negative) Patient is asymptomatic (without tachycardia or tremor on exam), will not start methimazole at thistime Further plan to follow if lab results remain abnormal including possible thyroid uptake and scan Orders: - TSH - T4, Free - T3, Free 2. Multinodular goiter Assessment & Plan: Obtain results from ultrasound 08/2024 Reassured patient due to multinodular goiter that cancer is less likely, especially if nodule was noted to be spongiform in appearance and less than 1 cm in size Schedule patient for follow-up with physician with expertise in thyroid nodules/ultrasound Current Outpatient Medications Medication Instructions Cymbalta 60 MG capsule esomeprazole (nexIUM) 20 MG capsule No follow-ups on file. Electronically signed by: Nisha Petty PA-C 11/30/2024 documented in this encounter Plan of Treatment Upcoming Encounters Date Type Department Care Team (Late st Contact Info) Description 01/18/2025 1:15 PM EDT Office Visit [facility] [address] [facility] [address] [place] [address] RylieShona Angleliu, [address] [facility] [place] [address] documented as of this encounter Procedures Procedure Name Priority Date/Time Associated Diagnosis Comments T3, FREE Routine 11/30/2024 8:36 AM EDT Hyperthyroidism TSH Routine 11/30/2024 8:36 AM EDT Hyperthyroidism T4, FREE Routine 11/30/2024 8:36 AM EDT Hyperthyroidism documented in this encounter Results * T3, Free (11/30/2024 8:36 AM EDT) T3, Free 3.19 2.00 - 4.40 pg/mL 11/30/2024 11:57 PM EDT [facility] Blood Structure of left upper limb / Unknown Venipuncture / Unknown 11/30/2024 8:36 AM EDT 11/30/2024 8:36 AM EDT Nisha Petty PA-C LAB BLOOD ORDERABLES Final Result [facility]
[address] [place] [address], * T4, Free (11/30/2024 8:36 AM EDT) Free T4 1.47 0.92 - 1.68 ng/dL 11/30/2024 11:57 PM EDT [facility] Blood Structure of left upper limb / Unknown Venipuncture / Unknown 11/30/2024 8:36 AM EDT 11/30/2024 8:36 AM EDT Nisha Prietonacot PA-C LAB BLOOD ORDERABLES Final Result Performing Organization Address City/[facility]/ZIP Co de Phone Number [facility]
[address] [place] [address], * TSH (11/30/2024 8:36 AM EDT) TSH 0.435 0.270 - 4.200 uIU/mL 11/30/2024 11:57 PM EDT [facility] Blood Structure of left upper limb / Unknown Venipuncture / Unknown 11/30/2024 8:36 AM EDT 11/30/2024 8:36 AM EDT Nisha Prietonacot PA-C LAB BLOOD ORDERABLES Final Result Performing Organization Address [facility] Co de Phone Number [facility]
[address] [place] [address], documented in this encounter Visit Diagnoses Diagnosis Hyperthyroidism- Primary Thyrotoxicosis without mention of goiter or other cause, without mention of thyrotoxic crisis or storm Multinodular goiter Nontoxic multinodular goiter documented in this encounter Care Teams Manufacturer Agent Relationship Specialty Start Date End Date Whitney Allen PA [address] [place] [address] PCP - General Physician Centrifugal Extractor Operator 11/29/24 documented as of this encounter
--- NOTE | 2024-12-29 14:56 | MR_ITS ---
FINAL REPORT TECHNIQUE: Multiplanar and multisequence imaging the left knee was obtained without contrast. CLINICAL HISTORY: LT KNEE PAIN gives out possible torn meniscus FINDINGS: Motion artifact limits exam quality. Bones: There is no acute fracture or marrow edema. There is lateral patellar tilt and lateral patellar subluxation without dislocation. Mild chondromalacia patella is noted. There are no full thickness cartilage defects. Menisci: No meniscal tear is present. Ligaments: No cruciate or collateral ligament tear is present. Tendons/Muscles: The quadriceps and patellar tendons are within normal limits. The biceps femoris tendon and iliotibial tract are intact. The popliteus tendon is normal. Other: There is significant no joint effusion. Remaining soft tissues are normal. IMPRESSION: 1. No meniscal tear or ligament tear. 2. Lateral patellar tilt and lateral patellar subluxation without dislocation. This is suggestive of a patellar tracking abnormality. Authenticated and ERN
--- OUTSIDE RECORDS SUMMARY | 2024-12-29 14:56 | XMS_ITS | Clinical Summary ---
Author Organization [facility] Address [address] [place] [address] Care Team Providers Care Engineering Officer Name Role Phone Whitney Allen Primary Care Provider [phone] Allergies No known active allergies Medications Cymbalta 60 MG capsule 07/04/2024 Active esomeprazole (nexIUM) 20 MG capsule Active Active Problems Problem Noted Date Diagnosed Date Hyperthyroidism 11/30/2024 Assessment & Plan (11/30/2024 8:51 AM EDT): Reviewed outside labs and medical records Pituitary thyroid axis discussed in detail, lab results explained to patient Discussed etiology of hyperthyroidism including thyroiditis, Graves' disease, and toxic nodule Check TSH, free T3, free T4 (TSI not ordered, as patient thinks she has already had previously and it was negative) Patient is asymptomatic (without tachycardia or tremor on exam), will not start methimazole at this time Further plan to follow if lab results remain abnormal including possible thyroid uptake and scan Multinodular goiter 11/30/2024 Assessment & Plan (11/30/2024 8:50 AM EDT): Obtain results from ultrasound 08/2024 Reassured patient due to multinodular goiter that cancer is less likely, especially if nodule was noted to be spongiform in appearance and less than 1 cm in size Schedule patient for follow-up with physician with expertise in thyroid nodules/ultrasound Encounters Date Type Department Care Team Description 12/01/2024 Telephone [facility] [address] [place] [address] Nisha Petty PA-C 11/30/2024 8:00 AM EDT Office Visit [facility] [address] [address] Nisha Petty PA-C Hyperthyroidism (Primary Dx); Multinodular goiter 11/30/2024 Telephone [facility] [address] [address] Nisha Petty PA-C 11/30/2024 Travel from Last 3 Months Family History Medical History Relation Name Comments Hypertension Father Stephen Ruelas Cancer Maternal Grandmother Kayley Baez Skin Hypertension Mother Ivette Ruelas - heart attack Cancer Paternal Grandfather Zachary Ruelas Prostat e and stomach Diabetes Paternal Grandmother Belinda Ruelas Relation Name Status Comments Father Stephen Ruelas Alive Maternal Grandmother Kayley Baez Alive Mother Ivette Ruelas Alive Paternal Grandfather Zachary Ruelas Alive Paternal Grandmother Belinda Ruelas Alive Social History Tobacco Use Types Packs/Day Years [...] Orientation Straight 11/23/2024 11 :18 AM EDT Last Filed Vital Signs Vital Sign Reading [...] Mass Index 25.46 11/30/2024 8:06 AM EDT Plan of Treatment Upcoming Encounters Date Type Department Care Team (Late st Contact Info) Description 01/18/2025 1:15 PM EDT Office Visit [facility] [address] [place] [address] Shona Youngblood, DO [address] [place], [place] [id number] Health Maintenance Due Date Last Done Comments Annual Gynecologic Pelvic an d Breast Exam 1991 TDAP/TD VACCINES (1 - Tdap) 07/16/2010 PAP SMEAR 07/16/2012 COVID-19 Vaccine (2 - 2023-2 5 season) 2024 08/10/2020 ANNUAL PHYSICAL 11/30/2024 HEPATITIS C SCREENING 11/30/2024 INFLUENZA VACCINE 02/01/2025 Pneumococcal Vaccine 0-49 Aged Out No longer eligible based on patient's age to complete this topic Procedures Procedure Name Priority Date/Time Associated Diagnosis Comments T3, FREE Routine 11/30/2024 8:36 AM EDT Hyperthyroidism T4, FREE Routine 11/30/2024 8:36 AM EDT Hyperthyroidism TSH Routine 11/30/2024 8:36 AM EDT Hyperthyroidism from Last 3 Months Results * T3, Free (11/30/2024 8:36 AM EDT) T3, Free 3.19 2.00 - 4.40 pg/mL 11/30/2024 11:57 PM EDT [facility] Blood Structure of left upper limb / Unknown Venipuncture / Unknown 11/30/2024 8:36 AM EDT 11/30/2024 8:36 AM EDT us Nisha Petty PA-C LAB BLOOD ORDERABLES Final Result [facility]
[address] [place] [address], * TSH (11/30/2024 8:36 AM EDT) TSH 0.435 0.270 - 4.200 uIU/mL 11/30/2024 11:57 PM EDT [facility] Blood Structure of left upper limb / Unknown Venipuncture / Unknown 11/30/2024 8:36 AM EDT 11/30/2024 8:36 AM EDT Tawanaa FiftyThreenacot PA-C LAB BLOOD ORDERABLES Final Result [facility]
[address] [place] [address], * T4, Free (11/30/2024 8:36 AM EDT) Free T4 1.47 0.92 - 1.68 ng/dL 11/30/2024 11:57 PM EDT [facility] Blood Structure of left upper limb / Unknown Venipuncture / Unknown 11/30/2024 8:36 AM EDT 11/30/2024 8:36 AM EDT Nisha FiftyThreenacot PA-C LAB BLOOD ORDERABLES Final Result Performing Organization Address City/[facility]/ZIP Co de Phone Number [facility]
[address] [place] [address], from Last 3 Months Insurance [employer] P[employer] Care Teams Engineering Officer Relationship Specialty Start Date End Date Whitney Allen PA [address] [place] [address] [facility] [address] [place] [phone] PCP - General Physician Base Filler 11/29/24
--- OUTSIDE RECORDS SUMMARY | 2024-12-29 14:56 | XMS_ITS | Clinical Summary ---
Author Organization [facility] Address [address] [place] [id number] Phone [email or web address] Care Team Providers Care Procurement Specialist Name Role Phone Provider, No Primary Care [...] Health Maintenance Due Date Last Done Comments Cervical Cancer Screening Combo 1991 Dental Cleaning/Exam 1991 HIV Screening 1991 HPV / Cotest 1991 Hepatitis C Screening 1991 Pap Testing 1991 HPV Immunization (1 - 2-dose series) 07/16/2002 Hep B Infection Screening - Triple Screen 07/16/2009 Hepatitis B Immunization (1 of 3 - 19+ 3-dose series) 07/16/2010 Pneumococcal: Ped (0 to 5 Yrs) and At-Risk Member (6 to 64 Yrs) (1 of 2 - PCV) 07/16/2010 Annual Preventive Exam 11/29/2022 2, 01/18/2021 Covid-19 Immunization (2 - season) 2024 08/10/2020 Influenza Immunization (#1) 2025 Tetanus Diphtheria and Pertussis Immunization (2 [...] patient's age to complete this topic Insurance [place] TREADWELL [id number] OPT OUT NO COPAY NB Care Teams Procurement Specialist Relationship Specialty Start Date [place] [address] PCP - General Business Planning Manager 11/27/22
--- OUTSIDE RECORDS SUMMARY | 2024-12-29 14:56 | XMS_ITS | Patient Health Record ---
Author Organization [facility] Address [address] [facility] [address] [place] [id number] Care Team Providers Care Artificial Leather Calender Operator Name Role Phone Whitney Allen Unavailable [phone] Allergies No Known Allergies Results Component Value Reference Range Notes P-Vitamin D 25-Hydroxy Reviewed date:06/30/2024 04:51:34 PM Interpretation:29.9 Performing Lab: Notes/Report: Test performed by [facility] [place] , [address], [place] [address] Asad Saucedo MD, Child Development Assistant CLIA: [id number] Vitamin D 25-Hydroxy 29.9 30.0-100.0 ng/mL Interpretation of Vitamin D 25 OH: < 20 ng/mL - Deficiency 20 - 29 ng/mL - Insufficiency 30 - 100 ng/mL - Sufficiency > 100 ng/mL - Super-therapeutic- toxicity may occur above this level. Clinical correlation required. P-TSH Reviewed date:06/30/2024 04:51:34 PM Interpretation:0.21 Performing Lab: Notes/Report: Test performed by [facility] [place] , [address], [place] [address] Asad Saucedo MD, Child Development Assistant CLIA: [id number] TSH 0.21 0.43-5.25 mU/L P-T4 Free (thyroxine) Reviewed date:06/30/2024 04:51:34 PM Interpretation:Normal Performing Lab: Notes/Report: Test performed by [facility] [address] [place], [place] [address] [place] , [address], [place] [address] Asad Saucedo MD, Child Development Assistant CLIA: [id number] Thyroxine Free (free T4) 1.63 0.86-1.76 ng/dL G-Q-Kgnwbxjy Protein (CRP) Reviewed date:06/30/2024 04:51:34 PM Interpretation:Normal Performing Lab: Notes/Report: Test performed by [facility] [address] [place] [address] , [place] [address] Asad Saucedo MD, Child Development Assistant CLIA: [id number] C-Reactive Protein (CRP) 0.04 <0.50 mg/dL P-Vitamin B12 Reviewed date:06/30/2024 04:51:33 PM Interpretation:353 - low normal Performing Lab: Notes/Report: Test performed by [facility] [address] [place] [address] , [place] [address] Asad Saucedo MD, Child Development Assistant CLIA: [id number] Vitamin B12 999 727-7404 pg/mL sleep study Reviewed date:11/22/2024 01:50:58 PM Interpretation:no significant TEVIN, snoring present Performing Lab: Notes/Report: no significant TEVIN, snoring present P-Thyroid Antibody Panel (TA BS) Reviewed date:08/25/2024 03:15:46 PM Interpretation: Performing Lab: Notes/Report: Test performed by [facility] [address] [place] [address] , [place] [address] Asad Saucedo MD, Child Development Assistant CLIA: [id number] Thyroid Peroxidase Antibody 10 <9-34 IU/mL An [...] methods or kits cannot be directly compared. CBC Venipuncture (in house) Reviewed date:08/17/2024 02:45:41 [...] 38 platlet 249 100 - 400 P-Vitamin B12 Reviewed date:08/18/2024 04:25:18 PM Interpretation:Normal Performing Lab: Notes/Report: Test performed by [facility] [address] [place] [address] , [address], [place] [address] Asad Saucedo MD, Child Development Assistant CLIA: [id number] Vitamin B12 562 189-8273 pg/mL P-T4 Free (thyroxine) Reviewed date:08/18/2024 04:25:19 PM Interpretation:Normal Performing Lab: Notes/Report: Test performed by [facility] [address] [place] [address] , [place] [address] Asad Saucedo MD, Child Development Assistant CLIA: [id number] Thyroxine Free (free T4) 1.41 0.86-1.76 ng/dL P-TSH Reviewed date:08/18/2024 04:25:19 PM Interpretation:0.12 Performing Lab: Notes/Report: Test performed by [facility] [address] [place] [address] , [address], [place] [address] Asad Saucedo MD, Child Development Assistant CLIA: [id number] TSH 0.12 0.43-5.25 mU/L P-Vitamin D 25-Hydroxy Reviewed date:08/18/2024 04:25:19 PM Interpretation:25.4 Performing Lab: Notes/Report: Test performed by [facility] [address] [place] [address] , [address], [place] [address] Asad Saucedo MD, Child Development Assistant CLIA: [id number] Vitamin D 25-Hydroxy 25.4 30.0-100.0 ng/mL Interpretation of Vitamin D 25 OH: < 20 ng/mL - Deficiency 20 - 29 ng/mL - Insufficiency 30 - 100 ng/mL - Sufficiency > 100 ng/mL - Super-therapeutic- toxicity may occur above this level. Clinical correlation required. Reason For Referral Diagnosis 1 Abnormal thyroid blo od test (R79.89) Referral Organization [facility] Referring Provider First Name Whitney Referring Provider Last Name Alejandro Referring Provider Speciality Physician Varnish Supervisor Referred Provider Specialty Endocrinolog y General Notes Whitney Allen 02:36:58 PM >Pt needs a referral to Dr. Shawna Youngblood at [facility], please send all labs, Bouchra Feliz 09/29/2024 [...] ce a day; Duration: 90 days Active Immunizations Vaccine Route Administration Date Status Comme nts COVID 19 Pfizer Unknown 08/10/2020 Administered Social History Tobacco Use: Social History Observation Description Date Smoking Status WARNING: Information temporarily unavailable CURRENT TOBACCO USE: Question Answer Notes Are you a: 1/2 pack per day Problems Problem Type SNOMED Code ICD Code Onset Dates Problem Status W/U Status Risk Notes Problem Vitamin D deficiency (08836369) Vitamin D deficiency (E55.9) Active confirmed Problem Paresthesia (09809819) Paresthesia (R20.2) Active confirmed Problem C-reactive protein abnormal (953725693) Elevated C-reactive protein (CRP) (R79.82) Active confirmed Problem Thyroid nodule (341714978) Thyroid nodule (E04.1) Active confirmed Problem Generalized anxiety disorder (60175079) Anxiety, generalized (F41.1) Active confirmed Problem Leukocytosis (107669484) Leukocytosis, unspecified (D72.829) Active confirmed Problem Daytime hypersomnia (78911993762539) 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 Vital Signs Heart Rate 100 /min 09/29/2024 Blood pressure diastolic 76 mm Hg 09/29/2024 Height 65 in 09/29/2024 Blood pressure systolic 120 mm Hg 09/29/2024 Weight 151 lbs 09/29/2024 BMI 25.12 kg/m2 09/29/2024 Encounters Encounter Location Date Provider Diagnosis [facility] [address] [place] [id number] 02/25/2024 Whitney Crowdy Epidermal cyst L72.0 and Local infection of the skin and subcutaneous tissue, unspecified L08.9 [facility] [address] [facility] [address] [place] [id number] 06/29/2024 Whitney Crowdy Anxiety, generalized F41.1 ; Costochondritis M94.0 ; Vitamin B12 deficiency E53.8 ; Vitamin D deficiency E55.9 ; Elevated C-reactive protein (CRP) R79.82 and Abnormal thyroid blood test R79.89 [facility] [address] [facility] [address] [place] [id number] 07/14/2024 Whitney Crowdy Vitamin B12 deficien cy E53.8 [facility] [address] [facility] [address] [place], [place] [id number] 07/20/2024 Whitney Crowdy Anxiety, generalized F41.1 ; Vitamin B12 deficiency E53.8 and Vitamin D deficiency E55.9 [facility] [address] [facility] [address] [place] [id number] 08/10/2024 Whitney Crowdy Vitamin B 12 deficie ncy E53.8 [facility] [address] [place] [id number] 08/17/2024 Whitney Crowdy Anxiety, generalized F41.1 ; Vitamin B12 deficiency E53.8 ; Vitamin D deficiency E55.9 ; Abnormal thyroid blood test R79.89 ; Acute URI J06.9 and BMI 24.0-24.9, adult Z68.24 [facility] [address] [facility] [address] [place] [id number] 08/23/2024 Whitney Crowdy Abnormal thyroid blo od test R79.89 [facility] [facility] [address] [place], [place] [id number] 09/15/2024 Whitney Crowdy Vitamin B12 deficien cy E53.8 [facility] [address] [place], [place] [id number] 09/29/2024 Whitney Crowdy Abnormal thyroid blo od test R79.89 ; Thyroid nodule E04.1 ; Daytime hypersomnia G47.10 ; Snoring R06.83 and BMI 25.0-25.9,adult Z68.25 [facility] [address] [place], [place] [id number] 10/20/2024 Whitney Crowdy Vitamin B 12 deficie ncy E53.8 [facility] [address] [place], [place] [id number] 11/24/2024 Whitney Crowdy Vitamin B 12 deficie ncy E53.8 [facility] [address] [place], [place] [id number] 06/30/2024 Whitney Crowdy [facility] [address] [place], [place] [id number] 08/18/2024 Whitney Crowdy [facility] [address] [place], [place] [id number] 08/25/2024 Whitney Crowdy Assessments Encounter Date Diagnosis (ICD Code) Assessment [...] B 12 deficiency (ICD-10 - E53.8) i 11/24/2024 Vitamin B 12 deficiency (ICD-10 - E53.8) 09/29/2024 Thyroid nodule (ICD-10 - E04.1) 08/17/2024 Vitamin D deficiency (ICD-10 - E55.9) 07/20/2024 Vitamin D deficiency (ICD-10 - E55.9) 06/29/2024 Vitamin B12 deficiency (ICD-10 - E53.8) 06/29/2024 Vitamin D deficiency (ICD-10 - E55.9) 09/29/2024 Daytime hypersomnia (ICD-10 - G47.10) 08/17/2024 Abnormal thyroid blood test (ICD-10 - R79.89) 09/29/2024 Snoring (ICD-10 - R06.83) 08/17/2024 Acute URI (ICD-10 - J06.9) 06/29/2024 Elevated C-reactive protein (CRP) (ICD-10 - R79.82) 06/29/2024 Abnormal thyroid blood test (ICD-10 - R79.89) 08/17/2024 BMI 24.0-24.9, adult (ICD-10 - Z68.24) 09/29/2024 BMI 25.0-25.9,adult (ICD-10 - Z68.25) Plan Of Treatment No Information Insurance Providers Payer Name Payer Address Payer Phone Subscriber Number Group Number Insured Name Patient Relationship to Insured Coverage Start Date Coverage End Date [facility] [address] [place] [address] [id number] LENA POND Self - patient is the insured Medications Administered Medication Instructions Date of Administration Dosage Notes B-12 07/14/2024 1 mL B-12 07/20/2024 1 mL B-12 08/10/2024 1 mL B-12 08/17/2024 1 mL B-12 09/15/2024 1 mL B-12 10/20/2024 1 mL B-12 11/24/2024 1 mL Medical (General) History Surgical History Surgery Date(Month/Year) Septoplasty 2013 Rotator cuff -right 2016 knee scope- meniscus repair 2020
--- OUTSIDE RECORDS SUMMARY | 2024-12-29 14:56 | XMS_ITS | Encounter Summary ---
[facility] Organization [facility] Address [address] [place] [address] Care Team Providers Care Marine Engineer Cpvec Name Role Phone Whitney Allen Primary Care Provider [phone] Encounter Details Date Type Department Care Team (Late st Contact Info) Description 11/30/2024 Telephone [facility] [address] [address] Nisha Petty PA-C [address] [phone] Social History Tobacco Use Types Packs/Day Years [...] AM EDT documented as of this encounter Miscellaneous Notes * Telephone Encounter - Nisha Petty PA-C - 11/30/2024 8:43 AM EDT Please request lab and ultrasound results from [facility] from 08/2024 documented in this encounter Plan of Treatment Upcoming Encounters Date Type Department Care Team (Late st Contact Info) Description 01/18/2025 1:15 PM EDT Office Visit [facility] [address] [facility] [address] [place] [phone] Shona Youngblood, DO [address] [facility] [address] [place] [address] documented as of this encounter Visit Diagnoses Not on filedocumented in this encounter Care Teams Marine Engineer Cpvec Relationship Specialty Start Date End Date Whitney Allen PA [address] [facility] [address] [place] [address] PCP - General Physician Pleater 11/29/24 documented as of this encounter
--- OUTSIDE RECORDS SUMMARY | 2024-12-29 14:56 | XMS_ITS | Encounter Summary ---
Author Organization [facility] Address [address] [place] [address] Care Team Providers Care Installation Technician Name Role Phone Whitney Allen Primary Care Provider Encounter Details Date Type Department Care Team (Latest Contact Info) Description 11/30/2024 Travel Social History Tobacco Use Types Packs/Day Years [...] AM EDT documented as of this encounter Plan of Treatment Upcoming Encounters Date Type Department Care Team (Late st Contact Info) Description 01/18/2025 1:15 PM EDT Office Visit [facility] [address] [place] [address] Shona Youngblood, [address] [place] [address] documented as of this encounter Visit Diagnoses Not on filedocumented in this encounter Care Teams Installation Technician Relationship Specialty Start Date End Date Whitney Allen PA [address] [facility] [place] [address] PCP - General Physician Rn Womens [facility] 11/29/24 documented as of this encounter
--- OUTSIDE RECORDS SUMMARY | 2024-12-29 14:56 | XMS_ITS | Encounter Summary ---
Author Organization [facility] Address [address] [place] [address] Care Team Providers Care Station Installation Supervisor Name Role Phone Whitney Allen Primary Care Provider [phone] Encounter Details Date Type Department Care Team (Late st Contact Info) Description 12/01/2024 Telephone [facility] [address] [employer] [address] [address] Nisha Petty PA-C [facility] [address] [address] Social History Tobacco Use Types Packs/Day Years [...] encounter Miscellaneous Notes * Telephone Encounter - Heidi Cunningham MA - 12/01/2024 2:25 PM EDT SPOKE TO PATIENT AND TOLD HER [facility]'S RECOMMENDATIONS. PATIENT VOICED UNDERSTANDING. * Telephone Encounter - Nisha Petty PA-C - 12/01/2024 1:04 PM EDT Please call patient and let her know that I reviewed her ultrasound and none of the thyroid noduleslook suspicious for cancer. Dr. Youngblood will discuss follow up going forward at her next visit. Please also tell patient that her thyroid FUNCTION is back to normal, so she doesn't have an overactivethyroid gland. documented in this encounter Plan of Treatment Upcoming Encounters Date Type Department Care Team (Late st Contact Info) Description 01/18/2025 1:15 PM EDT Office Visit [facility] [address] [facility] [address] [place] [phone] Shona Youngblood, [address] [facility] [address] [place] [address] documented as of this encounter Visit Diagnoses Not on filedocumented in this encounter Care Teams Station Installation Supervisor Relationship Specialty Start Date End Date Whitney Allen PA [address] [facility] [address] [place] [address] PCP - General Physician Cocoa Room Operator 11/29/24 documented as of this encounter
== END 2024-12-29 23:59 | disposition home or self-care (01) ==
LOC: RAD 14:54
PROVIDERS: PCP Physician Assistant; Visit Provider Orthopaedic Surgery Adult Reconstructive Orthopaedic Surgery
DX: S83.012A Lateral subluxation of left patella, initial encounter (principal)
CPT/HCPCS: 73721